=== PATIENT | female | born 1990 | race Caucasian/White ===

== ENCOUNTER 2023-09-16 18:46 | Emergency (ER) | payer OTHER, MEDICAID, SELFPAY ==
[2023-09-16 19:00] VITALS: BP 114/72; PULSE 98; RESP 16; TEMP 36.6; O2SAT 97; BMI 30.7
--- NOTE | 2023-09-16 20:08 | ED.RECABL ---
HPI - Recheck/Abnormal Lab/Rx General Chief Complaint: Recheck/Abnormal Lab/Rx Stated Complaint: Abnormal labs, sent by PCP Time Seen by Provider: 09/16/23 19:57 Source: patient Mode of arrival: Ambulatory History of Present Illness HPI narrative: 33-year-old woman with a history of depression planning to have a tummy tuck on September 30 in [facility]. She has a form that needs to be filled out for medical clearance including blood work. She apparently tried to have her own physician do this and that physician is out of town for a week and a half. She went to the walk-in clinic who referred her down to the hospital, she went to the lab who referred her to the emergency department. Because accessing resources has been a problem I did choose to complete her evaluation in the emergency department. She has had a recent sinus infection with antibiotics still has some congestion. Sinus CT shows no continued infection. No shortness a breath, chest pain, palpitations, nausea, vomiting, diarrhea, dysuria, flank pain, abdominal pain. Related Data Allergies Allergy/AdvReac Type Severity Reaction Status Date / Time fish derived Allergy Verified 09/16/23 19:13 gluten Allergy Verified 09/16/23 19:13 peanut Allergy Verified 09/16/23 19:13 shellfish derived Allergy Verified 09/16/23 19:13 wheat Allergy Verified 09/16/23 19:13 Review of Systems Review of Systems Narrative: Pertinent positive and negative findings as per HPI Patient History Medical History (Updated 09/16/23 @ 20:24 by Brandi Bueno MD) Depression Social History Smoking Status: Never smoker Smoking Status: Never smoker Substance Use Type: does not use Exam Initial Vital Signs Initial Vital Signs: Vital Signs Temperature 97.8 F 09/16/23 19:00 Pulse Rate 98 H 09/16/23 19:00 Respiratory Rate 16 09/16/23 19:00 Blood Pressure 114/72 09/16/23 19:00 Pulse Oximetry 97 09/16/23 19:00 Oxygen Delivery Method Room Air 09/16/23 19:00 General: Healthy appearing, in no acute distress. Able to give a complete and coherent history. Well-nourished well-developed HEENT: Moist mucous membranes, normal sclera with reactive pupils, Respiratory: Lungs are clear to auscultation, no wheezing no rales no rhonchi. Full and symmetrical air movement Cardiac: Regular rate and rhythm no murmurs no bruits Abdomen: Soft, nontender, good bowel tones, no flank pain Skin: Warm and dry, no rashes Neurologic: Grossly neurologically intact with no obvious asymmetries or abnormalities Extremities: No trauma, well perfused Psych: Cooperative, appropriate insight and affect Course Orders Ordered: ED Orders 09/16/23 20:19 EKG-12 Lead Stat 09/16/23 20:36 Complete Blood Count AUTO DIFF Stat Comprehensive Metabolic Panel Stat HCG Quantitative /Beta subunit Stat HIV 1 & 2 Ab/Ag 4th Gen Combo Stat PT [Prothrombin Time INR] Stat PTT Partial Thromboplastin Justin Stat 09/16/23 20:45 UA Complete [Urinalysis and Microscopic] Stat Vital Signs Vital signs: Vital Signs - 8 hr 09/16/23 19:00 Temperature 97.8 F Pulse Rate 98 H Respiratory Rate 16 Blood Pressure 114/72 Pulse Oximetry 97 Oxygen Delivery Method Room Air MDM - Recheck/Abnormal Lab/Rx Lab Data 09/16/23 20:36 09/16/23 20:36 Labs: Lab Results 09/16/23 09/16/23 Range/Units 20:36 20:45 WBC 6.8 (4.5-11.0) X10^3/uL RBC 4.64 (4.0-5.2) X10^6/uL Hgb 13.5 (12.0-16.0) g/dL Hct 40.0 (36-46) % MCV 86.2 (80-100) fL MCH 29.1 (26-34) PG MCHC 33.7 (30-36) % RDW 13.3 (11.6-14.8) % Plt Count 296 (150-400) X10^3/uL Neut % (Auto) 51.2 (50-75) % Lymph % (Auto) 33.1 (25-40) % [place] % (Auto) 9.2 (3-14) % Eos % (Auto) 4.5 H (2-4) % Baso % (Auto) 2.0 (0-2) % Neut # (Auto) 3500 (3726-3705) /uL Lymph # (Auto) 2300 (6554-4269) /uL [place] # (Auto) 600 (0-900) /uL Eos # (Auto) 300 (0-450) /uL Baso # (Auto) 100 (0-100) /uL PT 11.4 (9.4-12.5) SECONDS INR 1.0 (0.9-1.3) APTT 37 H (25.1-36.5) SECONDS Sodium 138 (137-145) mmol/L Potassium 3.7 (3.4-5.1) mmol/L Chloride 106 (98-107) mmol/L Carbon Dioxide 26 (22-32) mmol/L BUN 20 H (7-17) mg/dL Creatinine 0.74 (0.52-1.04) mg/dL Estimated GFR > 60 (>60) mL/min BUN/Creatinine Ratio 27.0 H (6-22) Glucose 80 (70-100) mg/dL Calcium 9.1 (8.4-10.2) mg/dL Total Bilirubin 0.3 (0.2-1.3) mg/dL AST 25 (14-36) IU/L ALT 20 (<35) IU/L Alkaline Phosphatase 53 (38-126) U/L Total Protein 7.5 (6.3-8.2) g/dL Albumin 4.4 (3.5-5.0) g/dL Globulin 3.1 (1.7-4.1) g/dL Albumin/Globulin Ratio 1.4 (1.0-2.8) HCG, Quant < 2.39 mIU/mL Urine Color Yellow Urine Appearance Clear Urine pH 8.0 (4.5-8.0) Ur Specific [place] 1.015 (1.000-1.035) Urine Protein Negative (Negative) Urine Glucose (UA) Negative (Negative) g/dL Urine Ketones Negative (NEGATIVE) Urine Occult Blood Negative (Negative) Urine Nitrate Negative (Negative) Urine Bilirubin Negative (NEGATIVE) Urine Urobilinogen 1.0 (0.2) E.U./dL Ur Leukocyte Esterase Negative (NEGATIVE) Urine RBC 0-1/hpf (0-5/HPF) Urine WBC 0-1/hpf (0-5/HPF) Ur Squamous Epith Cells 0-1 /hpf (0-5/HPF) Amorphous Sediment 1+ Urine Bacteria Occasional (0-1) (None) Ur Culture Indicated? Cult not indicated Vol Urine Centrifuged 10ml (spun) MDM Narrative Medical decision making narrative: 33-year-old woman presents for preoperative medical clearance for tummy tuck scheduled on September 30 in [place]. Exam is entirely benign History does not suggest findings that would cause acute complications or need additional workup, imaging or hospitalization Lab work including CBC, CMP, hCG, HIV, PT, PTT, INR, urinalysis as well as EKG as requested from the cosmetic surgical center have all been ordered. CBC is unremarkable Coagulation studies are unremarkable Chemistries show no acute abnormalities Quantitative hCG is undetectable, patient is not Urinalysis with microscopic evaluation is unremarkable. Culture is not indicated, patient does not have a UTI HIV testing is currently pending EKG shows sinus rhythm at a rate of 82. Normal intervals, normal axis. QTC of 420. No acute ischemic changes. Within the limits of emergency department evaluation, patient is felt to be medically stable for cosmetic surgical procedure Discharge Plan Departure Patient Disposition: Home Clinical Impression: Encounter for preoperative examination for general surgical procedure Activity Restrictions/Additional Instructions: I have given you a copy of your ER note from today which includes all the blood work as requested and note that says as far as you have been evaluated emergency department, you are felt to be clear for cosmetic surgery. The HIV test typically is not done overnight. It should be available by tomorrow. You will need to either axis [facility] patient portal for the result or call medical records and ask them for a copy of the result Good luck with your surgery Referrals: Carlos Grimes MD [Primary Care Provider] - Stand Alone Forms: Patient Portal/API
[2023-09-16 20:46] LABS: Add Manual Diff / Slide Review NO; Basophils Absolute Auto 100 /uL (0-100); Eosinophils Absolute Auto 300 /uL (0-450); Eosinophils Percent Auto 4.5 % (2-4); Hemoglobin 13.5 g/dL (12.0-16.0); Lymphocytes Absolute Auto 2300 /uL (1100-4500); Lymphocytes Percent Auto 33.1 % (25-40); Mean Corpuscular HGB Conc 33.7 % (30-36); Mean Corpuscular Hemoglobin 29.1 PG (26-34); Mean Corpuscular Volume 86.2 fL (80-100); Monocytes Absolute Auto 600 /uL (0-900); Monocytes Percent Auto 9.2 % (3-14); Neutrophils Absolute Auto 3500 /uL (1500-7000); Neutrophils Percent Auto 51.2 % (50-75); Platelet Count 296 X10^3/uL (150-400); Red Blood Cell Count 4.64 X10^6/uL (4.0-5.2); Red Cell Distribution Width 13.3 % (11.6-14.8); White Blood Cell Count 6.8 X10^3/uL (4.5-11.0)
[2023-09-16 20:56] LABS: Prothrombin Time 11.4 SECONDS (9.4-12.5)
[2023-09-16 20:58] LABS: PTT Partial Thromboplastin Tim 37 SECONDS (25.1-36.5)
[2023-09-16 21:01] LABS: Alanine Aminotransferase 20 IU/L (<35); Albumin 4.4 g/dL (3.5-5.0); Albumin Globulin Ratio 1.4 (1.0-2.8); Alkaline Phosphatase 53 U/L (38-126); Aspartate Aminotransferase 25 IU/L (14-36); Bilirubin Total 0.3 mg/dL (0.2-1.3); Blood Urea Nitrogen 20 mg/dL (7-17); Calcium 9.1 mg/dL (8.4-10.2); Carbon Dioxide 26 mmol/L (22-32); Chloride 106 mmol/L (98-107); Estimated Glomerular Filt Rate > 60 mL/min (>60); Globulin 3.1 g/dL (1.7-4.1); Glucose 80 mg/dL (70-100); HEMOLYSIS < 15 (0-50); Potassium 3.7 mmol/L (3.4-5.1); Sodium 138 mmol/L (137-145); Total Protein 7.5 g/dL (6.3-8.2)
[2023-09-16 21:02] LABS: Appearance Urine UA CLEAR; Bilirubin Urine UA NEGATIVE (NEGATIVE); Color Urine UA YELLOW; Glucose Urine UA NEGATIVE (Negative); Ketones Urine UA NEGATIVE (NEGATIVE); Leukocyte Esterase Urine UA NEGATIVE (NEGATIVE); Nitrite Urine UA NEGATIVE (Negative); Occult Blood Urine UA NEGATIVE (Negative); Protein Urine UA NEGATIVE (Negative); Specific Gravity Urine UA 1.015 (1.000-1.035)
[2023-09-16 21:17] LABS: HCG Quantitative /Beta subunit < 2.39 mIU/mL
[2023-09-16 21:22] LABS: Amorphous Sediment Urine 1+; Bacteria Urine Occasional (0-1); Culture Indicated Urine Cult Not Indicated; RBC Urine 0-1/HPF (0-5/HPF); Squamous Epithelial Cell Urine 0-1 /HPF (0-5/HPF); Urine Volume 10mL (spun); WBC Urine 0-1/HPF (0-5/HPF)
[2023-09-16 21:42] LABS: HIV 1 & 2 Ab/Ag 4th Gen Combo NEGATIVE (NEGATIVE)
[2023-09-16 21:49] VITALS: BP 129/83; PULSE 80; RESP 16; O2SAT 99
== END 2023-09-16 21:50 | disposition home or self-care (01) ==
PROVIDERS: Emergency Provider Emergency Medicine; PCP Internal Medicine
DX: Z01.818 Encounter for other preprocedural examination (principal)
CPT/HCPCS: 80053; 81001; 84702; 85025; 85610; 85730; 87389; 93005; 93010; 99281; 99282

== ENCOUNTER 2023-12-19 22:45 | Emergency (ER) | payer OTHER, MEDICAID, SELFPAY ==
[2023-12-19 22:55] VITALS: BP 135/89; PULSE 88; RESP 16; TEMP 36.7; O2SAT 98; BMI 29.9
--- NOTE | 2023-12-19 23:00 | DI.RAD.S_ITS ---
PROCEDURE: XR CHEST 1V INDICATIONS: chest pain TECHNIQUE: One view of the chest was acquired. COMPARISON: None. FINDINGS: Surgical changes and devices: None. Lungs and pleura: Lungs are clear. No pleural effusions or pneumothorax. Mediastinum: Mediastinal contours appear normal. Heart size is normal. Bones and chest wall: No suspicious bony lesions. Overlying soft tissues appear unremarkable. IMPRESSION: No acute cardiopulmonary abnormality is seen. Dictated by: Romeo Lamar M.D. on 12/20/2023 at 0:26 Approved by: Romeo Lamar M.D. on 12/20/2023 at 0:26
[2023-12-19 23:26] LABS: Add Manual Diff / Slide Review NO; Basophils Absolute Auto 100 /uL (0-100); Basophils Percent Auto 1.1 % (0-2); Eosinophils Absolute Auto 400 /uL (0-450); Eosinophils Percent Auto 5.9 % (2-4); Hematocrit 37.4 % (36-46); Hemoglobin 12.3 g/dL (12.0-16.0); Lymphocytes Absolute Auto 3000 /uL (1100-4500); Lymphocytes Percent Auto 42.9 % (25-40); Mean Corpuscular Hemoglobin 26.6 PG (26-34); Mean Corpuscular Volume 80.4 fL (80-100); Monocytes Absolute Auto 500 /uL (0-900); Monocytes Percent Auto 6.7 % (3-14); Neutrophils Absolute Auto 3000 /uL (1500-7000); Neutrophils Percent Auto 43.4 % (50-75); Platelet Count 322 X10^3/uL (150-400); Red Blood Cell Count 4.65 X10^6/uL (4.0-5.2); Red Cell Distribution Width 15.4 % (11.6-14.8)
--- NOTE | 2023-12-19 23:30 | EKG_ITS ---
[facility] [address], [place] [address] Test Date: 2023-12-19 Pat Name: Helga Howard Department: [facility] Room: Gender: Female Collateral Analyst: SARITHA : 1990 Requested By: Order Number: [id number] Reading MD: Wicho Escalante Measurements Intervals [place] Rate: 78 P: 42 VT: 186 QRS: 58 QRSD: 84 T: 49 QT: 374 QTc: 426 Interpretive Statements Normal sinus rhythm Electronically Signed On 12-20-2023 17:59:28 PDT by Wicho Escalante
[2023-12-19 23:44] LABS: INR 0.9 (0.9-1.3); Prothrombin Time 10.5 SECONDS (9.4-12.5)
[2023-12-19 23:46] LABS: PTT Partial Thromboplastin Tim 36 SECONDS (25.1-36.5)
[2023-12-19 23:59] LABS: Alanine Aminotransferase 31 IU/L (<35); Albumin 4.1 g/dL (3.5-5.0); Albumin Globulin Ratio 1.3 (1.0-2.8); Alkaline Phosphatase 47 U/L (38-126); Aspartate Aminotransferase 44 IU/L (14-36); BUN Creatinine Ratio 22.2 (6-22); Bilirubin Total 0.3 mg/dL (0.2-1.3); Blood Urea Nitrogen 16 mg/dL (7-17); Calcium 8.8 mg/dL (8.4-10.2); Carbon Dioxide 22 mmol/L (22-32); Chloride 107 mmol/L (98-107); Creatine Kinase 118 U/L (30-135); Estimated Glomerular Filt Rate > 60 mL/min (>60); Globulin 3.1 g/dL (1.7-4.1); Glucose 104 mg/dL (70-100); HEMOLYSIS < 15 (0-50); Lipase 126 U/L (23-300); Magnesium 1.8 mg/dL (1.6-2.3); Potassium 3.7 mmol/L (3.4-5.1); Sodium 137 mmol/L (137-145); Total Protein 7.2 g/dL (6.3-8.2)
[2023-12-20 00:10] LABS: NT-proBNP (BNP-Adult 18+) < 20 pg/mL (<125); Troponin I < 0.012 ng/mL (0.01-0.034)
[2023-12-20 01:00] VITALS: BP 124/78; PULSE 85; RESP 18; O2SAT 99
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
[2023-12-20] MEDS: DEXAMETHASONE 10 MG/ML VIAL PO (01:27)
== END 2023-12-20 01:47 | disposition home or self-care (01) ==
PROVIDERS: Emergency Provider Emergency Medicine; PCP Internal Medicine
DX: M62.838 Other muscle spasm (principal); T75.4XXS Electrocution, sequela; R07.9 Chest pain, unspecified; R11.0 Nausea
CPT/HCPCS: 36415; 71045; 80053; 82550; 83690; 83735; 83880; 84484; 85025; 85610; 85730; 93005; 99284; J1100

== ENCOUNTER 2024-02-07 22:03 | Emergency (ER) | payer OTHER, MEDICAID, SELFPAY ==
[2024-02-07 22:04] VITALS: BP 123/76; PULSE 99; RESP 18; TEMP 36.8; O2SAT 98
--- NOTE | 2024-02-07 22:20 | ED.NAVMDI ---
HPI - Nausea/Vomiting/Diarrhea General Chief complaint: Nausea/Vomiting/Diarrhea Stated complaint: Vomiting, Malaise, Spotting Time Seen by Provider: 02/07/24 22:10 Source: patient Mode of arrival: Ambulatory History of Present Illness HPI Narrative: 33-year-old female complains of nausea, vomiting, diarrhea multiple episodes since this morning. No black or red color. No fevers or chills. No recent exposure to antibiotics. She does also have a rash that is itchy on her face and upper chest, has swelling sensation to posterior back. No hives. No new medications, mascara, creams, clothing, detergents. 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 Close contact persons home and at work did not seem to have nausea vomiting diarrhea symptoms. No recent travel or camping. No history of chronic abdominal problems such as Crohn's disease, inflammatory bowel disease. She reports history of gluten allergy, is quite careful about her gluten intake, no recent gluten containing foods known. Related Data Previous Rx's Medication Instructions Recorded cetirizine 10 mg tablet 10 mg PO DAILY #14 tabs 02/08/24 prednisone 20 mg tablet 40 mg (2 x 20 mg) PO DAILY 5 days 02/08/24 #10 tabs prednisone 20 mg tablet 40 mg (2 x 20 mg) PO DAILY 5 days 02/08/24 #10 tabs Allergies Allergy/AdvReac Type Severity Reaction Status Date / Time fish derived Allergy Verified 09/16/23 19:13 gluten Allergy Verified 09/16/23 19:13 peanut Allergy Verified 09/16/23 19:13 shellfish derived Allergy Verified 09/16/23 19:13 wheat Allergy Verified 09/16/23 19:13 Review of Systems Review of Systems Narrative: See HPI Patient History Medical History Depression Social History Smoking Status: Never smoker Smoking Status: Never smoker alcohol intake frequency: 0-2 drinks per day Substance Use Type: does not use Exam Narrative Exam Narrative: GENERAL: Well-developed patient, in mild distress. HEAD: Atraumatic. Normocephalic. EYES: Pupils equal round and reactive. Extraocular motions intact. No scleral icterus. No injection or drainage. ENT: Nose without bleeding, purulent drainage. Throat without erythema, tonsillar hypertrophy or exudate. Airway patent. NECK: Trachea midline. Non tender CARDIOVASCULAR: Regular rate and rhythm without murmurs, gallops, or rubs. RESPIRATORY: Clear to auscultation. Breath sounds equal bilaterally. No wheezes, rales, or rhonchi. GASTROINTESTINAL: Abdomen soft, non-tender, nondistended. EXTREMITIES: No edema or joint tenderness. BACK: Nontender without deformity or crepitance. No flank tenderness. NEURO: AOx3. Motor functions grossly nonfocal SKIN: No rash or erythema of visible areas. Maculopapular rash face and anterior trunk, not particularly urticarial in nature. No angioedema to the face or lips or tongue or eyelids. No vesicles. No varied appearance, no erythematous spaces, not consistent with varicella by appearance or distribution. No similar rash posterior trunk or anterior abdomen or extremities. Initial Vital Signs Initial Vital Signs: Vital Signs Temperature 98.2 F 02/07/24 22:04 Pulse Rate 99 H 02/07/24 22:04 Respiratory Rate 18 02/07/24 22:04 Blood Pressure 123/76 02/07/24 22:04 Pulse Oximetry 98 02/07/24 22:04 Oxygen Delivery Method Room Air 02/07/24 22:04 Course Orders Ordered: ED Orders 02/07/24 21:55 Complete Blood Count AUTO DIFF Stat Comprehensive Metabolic Panel Stat GI Panel (Film Array) Stat Lipase Stat Urine Microscopic Stat Ondansetron HCl (Ondansetron 4 Mg/2 Ml Inj) 4 mg IV NOW PRN PRN Reason: Nausea And Vomiting Ondansetron HCl (Ondansetron 4 Mg Odt) 4 mg SL NOW PRN PRN Reason: Nausea And Vomiting Discontinued Medications Sodium Chloride (Normal Saline 0.9%) 1,000 mls @ 500 mls/hr IV BOLUS ONE Stop: 02/08/24 00:57 Last Admin: 02/07/24 23:21 Dose: 500 mls/hr Documented By: RAJI Methylprednisolone (Methylprednisolone 125 Mg/2 Ml Vial) 125 mg IV NOW ONE Stop: 02/07/24 22:44 Last Admin: 02/07/24 23:15 Dose: 125 mg Documented By: DKB Ondansetron HCl (Ondansetron 4 Mg/2 Ml Inj) 4 mg IV NOW ONE Stop: 02/07/24 22:44 Last Admin: 02/07/24 23:16 Dose: 4 mg Documented By: RAJI Ondansetron HCl (Ondansetron 4 Mg Odt Prepack) 1 bottle MISC DIRECTED ONE Stop: 02/08/24 00:33 Last Admin: 02/08/24 01:18 Dose: 1 bottle Documented By: RAJI Vital Signs Vital signs: Vital Signs - 8 hr 02/07/24 22:04 Temperature 98.2 F Pulse Rate 99 H Respiratory Rate 18 Blood Pressure 123/76 Pulse Oximetry 98 Oxygen Delivery Method Room Air MDM - Nausea/Vomiting/Diarrhea Lab Data Attestation: I reviewed the patient's lab results. Lab results narrative: White blood cell count 86647, hemoglobin 14, platelets adequate. Basic metabolic panel components unremarkable. Liver functions normal, lipase normal. Urine dip negative. Urine negative. GI pathogens panel negative. 02/07/24 21:55 02/07/24 21:55 Labs: Lab Results 02/07/24 Range/Units 21:55 WBC 11.7 H (4.5-11.0) X10^3/uL RBC 5.37 H (4.0-5.2) X10^6/uL Hgb 14.0 (12.0-16.0) g/dL Hct 43.3 (36-46) % MCV 80.6 (80-100) fL MCH 26.1 (26-34) PG MCHC 32.3 (30-36) % RDW 16.9 H (11.6-14.8) % Plt Count 322 (150-400) X10^3/uL Neut % (Auto) 72.1 (50-75) % Lymph % (Auto) 14.8 L (25-40) % [place] % (Auto) 7.2 (3-14) % Eos % (Auto) 5.3 H (2-4) % Baso % (Auto) 0.6 (0-2) % Neut # (Auto) 9 L (5160-1795) /uL Lymph # (Auto) 2 L (4890-6359) /uL [place] # (Auto) 1 (0-900) /uL Eos # (Auto) 1 (0-450) /uL Baso # (Auto) 0 (0-100) /uL Sodium 136 L (137-145) mmol/L Potassium 4.0 (3.4-5.1) mmol/L Chloride 104 (98-107) mmol/L Carbon Dioxide 21 L (22-32) mmol/L BUN 15 (7-17) mg/dL Creatinine 0.67 (0.52-1.04) mg/dL Estimated GFR > 60 (>60) mL/min BUN/Creatinine Ratio 22.4 H (6-22) Glucose 119 H (70-100) mg/dL Calcium 9.2 (8.4-10.2) mg/dL Total Bilirubin 0.5 (0.2-1.3) mg/dL AST 28 (14-36) IU/L ALT 20 (<35) IU/L Alkaline Phosphatase 46 (38-126) U/L Total Protein 7.9 (6.3-8.2) g/dL Albumin 4.5 (3.5-5.0) g/dL Globulin 3.4 (1.7-4.1) g/dL Albumin/Globulin Ratio 1.3 (1.0-2.8) Lipase 115 (23-300) U/L Urine RBC None seen (0-5/HPF) Urine WBC None seen (0-5/HPF) Ur Squamous Epith Cells 1-5 /hpf (0-5/HPF) Urine Bacteria None seen (None) Ur Culture Indicated? Cult not indicated Vol Urine Centrifuged 10ml (spun) Stl C. cayetanensis PCR Not detected (Not Detect) Stool Rotavirus (PCR) Not detected (Not Detect) Stool Adenovirus (PCR) Not detected (Not Detect) Stool Astrovirus (PCR) Not detected (Not Detect) Stool Cryptosporidium PCR Not detected (Not Detect) Stl E.coli Shiga Tox PCR Not detected (Not Detect) St Sh/Enteroin Ecoli PCR Not detected (Not Detect) Stl Enterotoxigenic E PCR Not detected (Not Detect) Stool EPEC (PCR) Not detected (Not Detect) Stl E. histolytica PCR Not detected (Not Detect) Stool Giardia Lamblia PCR Not detected (Not Detect) Stool Sapovirus (PCR) Not detected (Not Detect) Stl P. shigelloides PCR Not detected (Not Detect) St Y.enterocolitica PCR Not detected (Not Detect) Stool Vibrio (PCR) Not detected (Not Detect) Stl Vibrio cholerae PCR Not detected (Not Detect) Stl Enteroaggr Ecoli PCR Not detected (Not Detect) Stl Norovirus GI/GII PCR Not detected (Not Detect) Campylobacter (PCR) Not detected (Not Detect) C. difficile Tox (PCR) Not detected (Not Detect) Salmonella (PCR) Not detected (Not Detect) Point of Care Testing Test Results Negative Urine Dip Bedside Urine Glucose Negative Bedside Urine Ketone +/- 5 Urine Specific [place] 1.30 Bedside Urine Occult Blood +/- Bedside Urine pH 6.0 Bedside Urine Protein - Negative Bedside Urine Urobilinogen - Negative Bedside Urine Nitrite - Negative Bedside Urine Leukocytes +/- 15 Esterase MDM Narrative Medical decision making narrative: Nausea vomiting diarrhea, crampy abdominal discomfort, afebrile, sirs screen negative. Some maculopapular rash facial and upper neck also noted. Could consider anaphylactoid reaction to some exposure with GI component. Itchy rash. We will give IV Solu-Medrol. Offered Benadryl, she does not like the sedation effect, consider oral Zyrtec [id number]. Normotensive, without wheeze or dyspnea. Labs pending. IV fluids given. Negative GI stool panel. Serum studies unremarkable. Urine test negative noted. Urinalysis negative. Symptoms improved, itchy rash with GI symptoms, could consider anaphylactoid reaction, recent exposure to construction materials at work. Prednisone additional few days. She does not want Benadryl as she finds this sedating, prescription written for cetirizine less sedating oral antihistamine. Ondansetron ODT home pack. Encouraged to drink oral fluids. Improved, discharged home with family. Return precautions discussed Discharge Plan Departure Patient Disposition: Home Clinical Impression: Nausea vomiting and diarrhea, Pruritic rash Activity Restrictions/Additional Instructions: Nausea vomiting diarrhea. No fever, some association with itchy rash predominantly to the face and upper chest, also some symptoms lower back. 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 Itchy rash with gastrointestinal symptoms, could represent anaphylactoid reaction to some exposure. IV steroids Solu-Medrol given in the emergency department, you declined Benadryl due to sedation effects, consider use of [id number] Zyrtec less sedating antihistamine daily for the next few days, or longer if continued exposure to construction/work environment. Steroid prednisone orally prescribed for the next few days. Ondansetron home pack oral dissolvable formulation, to use for nausea control if needed. Laboratory studies showed no virus or bacteria in stool specimen. Unremarkable serum studies. Take medications as directed. Recheck symptoms with your regular doctor persisting Saturday/Saturday early this upcoming week. Return to this/nearest emergency department for any change worsening symptoms or any concerns prior Prescriptions: New prednisone 20 mg tablet 40 mg PO DAILY 5 Days Qty: 10 0RF cetirizine 10 mg tablet 10 mg PO DAILY Qty: 14 0RF prednisone 20 mg tablet 40 mg PO DAILY 5 Days Qty: 10 0RF Referrals: Carlos Grimes MD [Primary Care Provider] - Stand Alone Forms: Patient Portal/API/Survey
[2024-02-07 22:41] LABS: Hematocrit 43.3 % (36-46); Mean Corpuscular Hemoglobin 26.1 PG (26-34); Mean Corpuscular Volume 80.6 fL (80-100); Red Blood Cell Count 5.37 X10^6/uL (4.0-5.2); White Blood Cell Count 11.7 X10^3/uL (4.5-11.0)
[2024-02-07 22:42] LABS: Add Manual Diff / Slide Review NO; Basophils Percent Auto 0.6 % (0-2); Eosinophils Percent Auto 5.3 % (2-4); Lymphocytes Percent Auto 14.8 % (25-40); Mean Corpuscular HGB Conc 32.3 % (30-36); Monocytes Percent Auto 7.2 % (3-14); Neutrophils Percent Auto 72.1 % (50-75); Platelet Count 322 X10^3/uL (150-400); Red Cell Distribution Width 16.9 % (11.6-14.8)
[2024-02-07 22:43] LABS: Basophils Absolute Auto 0 /uL (0-100); Eosinophils Absolute Auto 1 /uL (0-450); Lymphocytes Absolute Auto 2 /uL (1100-4500); Monocytes Absolute Auto 1 /uL (0-900); Neutrophils Absolute Auto 9 /uL (1500-7000)
[2024-02-07 22:50] LABS: Alanine Aminotransferase 20 IU/L (<35); Albumin 4.5 g/dL (3.5-5.0); Albumin Globulin Ratio 1.3 (1.0-2.8); Alkaline Phosphatase 46 U/L (38-126); Aspartate Aminotransferase 28 IU/L (14-36); BUN Creatinine Ratio 22.4 (6-22); Bacteria Urine None Seen; Bilirubin Total 0.5 mg/dL (0.2-1.3); Blood Urea Nitrogen 15 mg/dL (7-17); Calcium 9.2 mg/dL (8.4-10.2); Carbon Dioxide 21 mmol/L (22-32); Chloride 104 mmol/L (98-107); Estimated Glomerular Filt Rate > 60 mL/min (>60); Globulin 3.4 g/dL (1.7-4.1); Glucose 119 mg/dL (70-100); HEMOLYSIS < 15 (0-50); Lipase 115 U/L (23-300); RBC Urine None Seen (0-5/HPF); Sodium 136 mmol/L (137-145); Squamous Epithelial Cell Urine 1-5 /HPF (0-5/HPF); Total Protein 7.9 g/dL (6.3-8.2); Urine Volume 10mL (spun); WBC Urine None Seen (0-5/HPF)
[2024-02-07 22:51] LABS: Culture Indicated Urine Cult Not Indicated
[2024-02-07] MEDS: methylPREDNISolone 125 MG/2 ML VIAL IV (23:15)
[2024-02-07] MEDS: ONDANSETRON 4 MG/2 ML INJ IV (23:16)
[2024-02-07 23:20] VITALS: PULSE 95; O2SAT 98
[2024-02-07 23:21] VITALS: BP 120/65; PULSE 90; O2SAT 98
[2024-02-07] MEDS: SODIUM CHLORIDE 0.9% 1,000 ML 500 ML IV (23:21)
[2024-02-07 23:30] VITALS: PULSE 90; O2SAT 99
[2024-02-08] VITALS: PULSE 92; O2SAT 98
[2024-02-08 00:16] LABS: Adenovirus F 40/41 Not Detected (Not Detect); Astrovirus Not Detected (Not Detect); Campylobacter Not Detected (Not Detect); Clostridium difficile toxin AB Not Detected (Not Detect); Cryptosporidium Not Detected (Not Detect); Cyclospora cayetanensis Not Detected (Not Detect); Entamoeba histolytica Not Detected (Not Detect); Enteroaggregative E.coli Not Detected (Not Detect); Enteropathogenic E.coli Not Detected (Not Detect); Enterotoxigenic E.coli It/st Not Detected (Not Detect); Giardia lamblia Not Detected (Not Detect); Norovirus GI/GII Not Detected (Not Detect); Plesiomonsa shigelloides Not Detected (Not Detect); Rotavirus A Not Detected (Not Detect); Salmonella Not Detected (Not Detect); Sapovirus Not Detected (Not Detect); Shiga-like toxin-prod E.coli Not Detected (Not Detect); Shigella/Enteroinvasive E.coli Not Detected (Not Detect); Vibrio Not Detected (Not Detect); Vibrio cholerae Not Detected (Not Detect); Yersinia enterocolitica Not Detected (Not Detect)
[2024-02-08 00:30] VITALS: PULSE 90; O2SAT 95
--- NOTE | 2024-02-08 01:03 | PC.NURSE ---
Pt informed that VS would be taken automaticly every 30 min. She removed BP cuff multiple times.
[2024-02-08] MEDS: ONDANSETRON 4 MG ODT PREPACK 1 BOTTLE MISC (01:18)
[2024-02-08 01:23] VITALS: O2SAT 96
[2024-02-08 01:25] VITALS: BP 113/76; PULSE 90; O2SAT 96
== END 2024-02-08 01:31 | disposition home or self-care (01) ==
PROVIDERS: Emergency Provider Emergency Medicine; PCP Internal Medicine
DX: R11.2 Nausea with vomiting, unspecified (principal); R19.7 Diarrhea, unspecified; R21 Rash and other nonspecific skin eruption
CPT/HCPCS: 36415; 80053; 81003; 81015; 81025; 83690; 85025; 87507; 96361; 96374; 96375; 99284; J2405; J2919

== ENCOUNTER 2024-04-02 19:25 | Emergency (ER) | payer OTHER, SELFPAY ==
[2024-04-02 19:31] VITALS: BP 145/75; PULSE 103; RESP 18; TEMP 36.8; O2SAT 99; BMI 29.9
[2024-04-02] MEDS: ONDANSETRON 4 MG ODT SL (19:41)
[2024-04-02 19:55] LABS: Bacteria Urine Moderate (10-30); RBC Urine None Seen (0-5/HPF); Squamous Epithelial Cell Urine 1-5 /HPF (0-5/HPF); Urine Volume 10mL (spun); WBC Urine None Seen (0-5/HPF)
[2024-04-02 19:57] LABS: Culture Indicated Urine Cult Not Indicated
[2024-04-02] MEDS: ONDANSETRON 4 MG/2 ML INJ IV (21:25)
[2024-04-02 21:28] LABS: Add Manual Diff / Slide Review NO; Basophils Absolute Auto 100 /uL (0-100); Basophils Percent Auto 1.2 % (0-2); Eosinophils Absolute Auto 400 /uL (0-450); Eosinophils Percent Auto 4.9 % (2-4); Hematocrit 37.5 % (36-46); Hemoglobin 12.5 g/dL (12.0-16.0); Lymphocytes Absolute Auto 2200 /uL (1100-4500); Lymphocytes Percent Auto 29.7 % (25-40); Mean Corpuscular HGB Conc 33.4 % (30-36); Mean Corpuscular Hemoglobin 28.4 PG (26-34); Mean Corpuscular Volume 85.2 fL (80-100); Monocytes Absolute Auto 700 /uL (0-900); Monocytes Percent Auto 8.8 % (3-14); Neutrophils Absolute Auto 4100 /uL (1500-7000); Neutrophils Percent Auto 55.4 % (50-75); Platelet Count 293 X10^3/uL (150-400); Red Cell Distribution Width 14.8 % (11.6-14.8); White Blood Cell Count 7.4 X10^3/uL (4.5-11.0)
[2024-04-02 21:41] LABS: Alanine Aminotransferase 59 IU/L (<35); Albumin 4.2 g/dL (3.5-5.0); Albumin Globulin Ratio 1.4 (1.0-2.8); Alkaline Phosphatase 40 U/L (38-126); Aspartate Aminotransferase 43 IU/L (14-36); Bilirubin Total 0.2 mg/dL (0.2-1.3); Blood Urea Nitrogen 13 mg/dL (7-17); Calcium 8.8 mg/dL (8.4-10.2); Carbon Dioxide 20 mmol/L (22-32); Chloride 108 mmol/L (98-107); Estimated Glomerular Filt Rate > 60 mL/min (>60); Globulin 2.9 g/dL (1.7-4.1); Glucose 126 mg/dL (70-100); HEMOLYSIS < 15 (0-50); Lipase 133 U/L (23-300); Magnesium 1.7 mg/dL (1.6-2.3); Sodium 135 mmol/L (137-145); Total Protein 7.1 g/dL (6.3-8.2)
[2024-04-02 21:48] LABS: Ketones (Beta-Hydroxybutyrate) 0.03 mmol/L (<0.27)
--- NOTE | 2024-04-02 22:07 | ED_ITS ---
HPI - General Adult General Chief complaint: Diabetic Problem Stated complaint: High glucose Time Seen by Provider: 04/02/24 20:25 Source: patient Mode of arrival: Ambulatory History of Present Illness HPI narrative: Patient was a 33-year-old female. Is a diabetic. Is here for evaluation of feeling like her blood sugars have been elevated. Also having a rash on her chest. No recent medication changes. Has a follow up with her primary doctor scheduled for tomorrow. Patient was also having nausea. Was recently started on diclofenac for neck discomfort. This is a pill and not the cream. Her presenting symptoms today started prior to starting the diclofenac. Her symptoms have been present for approximately 1 week. Related Data Previous Rx's Medication Instructions Recorded cetirizine 10 mg tablet 10 mg PO DAILY #14 tabs 02/08/24 hydrocortisone valerate 0.2 % 1 applic topical QD-TID PRN rash 04/02/24 topical cream #15 grams Allergies Allergy/AdvReac Type Severity Reaction Status Date / Time fish derived Allergy Verified 09/16/23 19:13 gluten Allergy Verified 09/16/23 19:13 peanut Allergy Verified 09/16/23 19:13 shellfish derived Allergy Verified 09/16/23 19:13 wheat Allergy Verified 09/16/23 19:13 Review of Systems Review of Systems ROS Unobtainable: All systems reviewed & are unremarkable except as noted in HPI and below Patient History Medical History Depression Social History Smoking Status: Never smoker Smoking Status: Never smoker alcohol intake frequency: 0-2 drinks per day Exam Initial Vital Signs Initial Vital Signs: Vital Signs Temperature 98.2 F 04/02/24 19:31 Pulse Rate 103 H 04/02/24 19:31 Respiratory Rate 18 04/02/24 19:31 Blood Pressure 145/75 H 04/02/24 19:31 Pulse Oximetry 99 04/02/24 19:31 Oxygen Delivery Method Room Air 04/02/24 19:31 Const General: cooperative, comfortable and No ill appearing HENMT Head: normal to inspection and normocephalic Resp Effort & Inspection: normal respiratory effort Auscultation: clear to auscultation bilaterally Cardio Rate: regular rate Rhythm: regular rhythm GI Inspection: normal to inspection Skin Other: Patient has a beefy red rash on her upper chest. No vesicles. No pustules. Does extend somewhat up onto her neck. It was not urticaria in appearing. Not cellulitic appearing. Neuro General: patient alert, patient awake, patient oriented x3 and moves all extremities Extrem General: capillary refill normal Course Orders Ordered: ED Orders 04/02/24 19:34 Urine Microscopic Stat 04/02/24 21:15 Complete Blood Count AUTO DIFF Stat Comprehensive Metabolic Panel Stat Ketones (Beta-Hydroxybutyrate) Stat Lipase Stat Magnesium Stat Discontinued Medications Ondansetron HCl (Ondansetron 4 Mg/2 Ml Inj) 4 mg IV NOW PRN PRN Reason: Nausea And Vomiting Last Admin: 04/02/24 21:25 Dose: 4 mg Documented By: PAT Ondansetron HCl (Ondansetron 4 Mg Odt) 4 mg SL NOW PRN PRN Reason: Nausea And Vomiting Last Admin: 04/02/24 19:41 Dose: 4 mg Documented By: LEONCIO Vital Signs Vital signs: Vital Signs - 8 hr 04/02/24 22:20 Pulse Rate 85 Respiratory Rate 16 Blood Pressure 135/80 Pulse Oximetry 99 Oxygen Delivery Method Room Air Medical Decision Making Lab Data Lab results reviewed: Yes I reviewed the patient's lab results. 04/02/24 21:15 04/02/24 21:15 Labs: Lab Results 04/02/24 04/02/24 Range/Units 19:34 21:15 WBC 7.4 (4.5-11.0) X10^3/uL RBC 4.40 (4.0-5.2) X10^6/uL Hgb 12.5 (12.0-16.0) g/dL Hct 37.5 (36-46) % MCV 85.2 (80-100) fL MCH 28.4 (26-34) PG MCHC 33.4 (30-36) % RDW 14.8 (11.6-14.8) % Plt Count 293 (150-400) X10^3/uL Neut % (Auto) 55.4 (50-75) % Lymph % (Auto) 29.7 (25-40) % [place] % (Auto) 8.8 (3-14) % Eos % (Auto) 4.9 H (2-4) % Baso % (Auto) 1.2 (0-2) % Neut # (Auto) 4100 (3931-7221) /uL Lymph # (Auto) 2200 (7249-2234) /uL [place] # (Auto) 700 (0-900) /uL Eos # (Auto) 400 (0-450) /uL Baso # (Auto) 100 (0-100) /uL Sodium 135 L (137-145) mmol/L Potassium 4.0 (3.4-5.1) mmol/L Chloride 108 H (98-107) mmol/L Carbon Dioxide 20 L (22-32) mmol/L BUN 13 (7-17) mg/dL Creatinine 0.62 (0.52-1.04) mg/dL Estimated GFR > 60 (>60) mL/min BUN/Creatinine Ratio 21.0 (6-22) Glucose 126 H (70-100) mg/dL Calcium 8.8 (8.4-10.2) mg/dL Magnesium 1.7 (1.6-2.3) mg/dL Total Bilirubin 0.2 (0.2-1.3) mg/dL AST 43 H (14-36) IU/L ALT 59 H (<35) IU/L Alkaline Phosphatase 40 (38-126) U/L Total Protein 7.1 (6.3-8.2) g/dL Albumin 4.2 (3.5-5.0) g/dL Globulin 2.9 (1.7-4.1) g/dL Albumin/Globulin Ratio 1.4 (1.0-2.8) Lipase 133 (23-300) U/L Urine RBC None seen (0-5/HPF) Urine WBC None seen (0-5/HPF) Ur Squamous Epith Cells 1-5 /hpf (0-5/HPF) Urine Bacteria Moderate (10-30) H (None) Ur Culture Indicated? Cult not indicated Vol Urine Centrifuged 10ml (spun) Ketones 0.03 (<0.27) mmol/L Point of Care Testing Test Results Negative Urine Dip Bedside Urine Glucose Negative Bedside Urine Bilirubin - Negative Bedside Urine Ketone - Negative Urine Specific [place] 1.015 Bedside Urine Occult Blood + Bedside Urine pH 6 Bedside Urine Protein - Negative Bedside Urine Urobilinogen - Negative Bedside Urine Nitrite - Negative Bedside Urine Leukocytes - Negative Esterase Point of care testing: Point of Care Testing Test Results Negative Urine Dip Bedside Urine Glucose Negative Bedside Urine Bilirubin - Negative Bedside Urine Ketone - Negative Urine Specific [place] 1.015 Bedside Urine Occult Blood + Bedside Urine pH 6 Bedside Urine Protein - Negative Bedside Urine Urobilinogen - Negative Bedside Urine Nitrite - Negative Bedside Urine Leukocytes - Negative Esterase MDM Narrative Medical decision making narrative: Her blood sugars today are unremarkable. She was not in DKA. No fevers. Has a rash on her upper chest of an uncertain etiology but it does not appear to be an anaphylactic reaction or cellulitis. Recommended topical medications for now. A topical steroid has been helpful in the past when she was had symptoms like this. Advised that she keep her scheduled appointment with her primary doctor. She was given return precautions. She expressed understanding and agreement. Discharge Plan Departure Patient Disposition: Home Clinical Impression: Rash Instructions: DI for Rash Activity Restrictions/Additional Instructions: I recommend that you keep your follow-up appointment with your primary doctor that is scheduled for tomorrow. Take all of your medications as directed. Return to the emergency department for new or worsening symptoms. Prescriptions: New hydrocortisone valerate 0.2 % cream 1 applic topical QD-TID PRN (Reason: rash) Qty: 15 1RF No Action cetirizine 10 mg tablet 10 mg PO DAILY Qty: 14 0RF Referrals: Carlos Grimes MD [Primary Care Provider] - Stand Alone Forms: Patient Portal/API/Survey
[2024-04-02 22:20] VITALS: BP 135/80; PULSE 85; RESP 16; O2SAT 99
== END 2024-04-02 22:20 | disposition home or self-care (01) ==
PROVIDERS: Emergency Provider Emergency Medicine; PCP Internal Medicine
DX: R21 Rash and other nonspecific skin eruption (principal); E11.9 Type 2 diabetes mellitus without complications
CPT/HCPCS: 36415; 80053; 81003; 81015; 81025; 82009; 83690; 83735; 85025; 96374; 99283; 99284; J2405

== ENCOUNTER 2024-05-29 20:44 | Emergency (ER) | payer OTHER, SELFPAY ==
[2024-05-29 21:01] VITALS: BP 148/75; PULSE 96; RESP 17; TEMP 36.8; O2SAT 97; BMI 30.7
[2024-05-29 21:44] LABS: Bacteria Urine Occasional (0-1); Mucus Urine 1+ (Negative); RBC Urine 0-1/HPF (0-5/HPF); Squamous Epithelial Cell Urine 1-5 /HPF (0-5/HPF); Urine Volume 10mL (spun); WBC Urine 0-1/HPF (0-5/HPF)
[2024-05-29 21:45] LABS: Culture Indicated Urine Cult Not Indicated
[2024-05-30 02:33] VITALS: PULSE 93; O2SAT 98
[2024-05-30 02:34] VITALS: BP 121/75; PULSE 89; O2SAT 98
--- NOTE | 2024-05-30 02:37 | PC.NURSE ---
Pt states that she has been riding her bike to work. Since then she has been having low back pain and bilateral leg pain. Recent diagnosis of UTI with treatment with cipro, and prednisone. Pt states that she is suppose to have follow up sometime saturday to ensure that she does not have a kidney stone.
[2024-05-30 03:00] VITALS: BP 119/59; PULSE 74; O2SAT 96
[2024-05-30 03:30] VITALS: BP 117/58; PULSE 77; O2SAT 98
--- NOTE | 2024-05-30 03:39 | ED.GENADULT ---
HPI - General Adult General Chief complaint: Ear Stated complaint: cannot hear t-7 Time Seen by Provider: 05/30/24 03:36 Source: patient Mode of arrival: Ambulatory History of Present Illness HPI narrative: 34-year-old female complains of bilateral ear congestion sensation, decreased hearing both ears, currently day 2 of oral ciprofloxacin for urinary tract infection with 1 more course to take, prescribed cetirizine in the past. No ear drainage. No ear trauma. Some sinus congestion as well. She has low back pain after riding her bike, without back support. No bowel or bladder incontinence, denies current shooting pains in the leg, able to walk around without difficulties or weakness. Related Data Home Medications Medication Instructions Recorded Confirmed ciprofloxacin HCl 500 mg tablet mg 05/29/24 Previous Rx's Medication Instructions Recorded cetirizine 10 mg tablet 10 mg PO DAILY #14 tabs 02/08/24 hydrocortisone valerate 0.2 % 1 applic topical QD-TID PRN rash 04/02/24 topical cream #15 grams prednisone 20 mg tablet 40 mg (2 x 20 mg) PO DAILY 3 days 05/30/24 #10 tabs Allergies Allergy/AdvReac Type Severity Reaction Status Date / Time fish derived Allergy Verified 05/29/24 21:06 gluten Allergy Verified 05/29/24 21:06 peanut Allergy Verified 05/29/24 21:06 shellfish derived Allergy Verified 05/29/24 21:06 wheat Allergy Verified 05/29/24 21:06 Patient History Medical History Depression Social History Smoking Status: Never smoker Smoking Status: Never smoker alcohol intake frequency: 0-2 drinks per day Exam Narrative Exam Narrative: GENERAL: Well-developed patient, in mild distress. HEAD: Atraumatic. Normocephalic. EYES: Pupils equal round and reactive. Extraocular motions intact. No scleral icterus. No injection or drainage. ENT: Nose atraumatic without rhinorrhea. TMs with clear fluid behind but normal landmarks, EACs normal. NECK: Trachea midline. Non tender, moves neck well CARDIOVASCULAR: Regular rate and rhythm without murmurs, gallops, or rubs. RESPIRATORY: Clear to auscultation. Breath sounds equal bilaterally. No wheezes, rales, or rhonchi. GASTROINTESTINAL: Abdomen soft, non-tender, nondistended. EXTREMITIES: No edema or joint tenderness. BACK: Nontender without deformity or crepitance. No flank tenderness. No midline or paraspinal muscular tenderness on examination, no scars or lesions or redness or rash or vesicles. NEURO: AOx3. Motor functions grossly nonfocal SKIN: No rash or erythema of visible areas Initial Vital Signs Initial Vital Signs: Vital Signs Temperature 98.3 F 05/29/24 21:01 Pulse Rate 96 H 05/29/24 21:01 Respiratory Rate 17 05/29/24 21:01 Blood Pressure 148/75 H 05/29/24 21:01 Pulse Oximetry 97 05/29/24 21:01 Oxygen Delivery Method Room Air 05/29/24 21:01 Course Orders Ordered: ED Orders 05/29/24 21:34 Urine Microscopic Stat Vital Signs Vital signs: Vital Signs - 8 hr 05/30/24 02:33 05/30/24 02:34 05/30/24 02:34 Pulse Rate 93 H 89 Blood Pressure 121/75 Pulse Oximetry 98 98 Oxygen Delivery Method Room Air 05/30/24 03:00 05/30/24 03:00 05/30/24 03:30 Pulse Rate 74 Blood Pressure 119/59 L 117/58 L Pulse Oximetry 96 Oxygen Delivery Method 05/30/24 03:30 Pulse Rate 77 Blood Pressure Pulse Oximetry 98 Oxygen Delivery Method Room Air Medical Decision Making Lab Data Lab results reviewed: Yes I reviewed the patient's lab results. Lab results narrative: Urinalysis negative. Labs: Lab Results 05/29/24 Range/Units 21:34 Urine RBC 0-1/hpf (0-5/HPF) Urine WBC 0-1/hpf (0-5/HPF) Ur Squamous Epith Cells 1-5 /hpf (0-5/HPF) Urine Bacteria Occasional (0-1) (None) Urine Mucus 1+ H (Negative) Ur Culture Indicated? Cult not indicated Vol Urine Centrifuged 10ml (spun) Urine Dip Bedside Urine Glucose Negative Bedside Urine Bilirubin - Negative Bedside Urine Ketone - Negative Urine Specific [place] 1.020 Bedside Urine Occult Blood + Bedside Urine pH 6.5 Bedside Urine Protein +/- 15 Bedside Urine Urobilinogen - Negative Bedside Urine Nitrite - Negative Bedside Urine Leukocytes - Negative Esterase Point of care testing: Urine Dip Bedside Urine Glucose Negative Bedside Urine Bilirubin - Negative Bedside Urine Ketone - Negative Urine Specific [place] 1.020 Bedside Urine Occult Blood + Bedside Urine pH 6.5 Bedside Urine Protein +/- 15 Bedside Urine Urobilinogen - Negative Bedside Urine Nitrite - Negative Bedside Urine Leukocytes - Negative Esterase MDM Narrative Medical decision making narrative: 34-year-old female with decreased hearing sensation in ear fullness. Low back pain after riding her bike without back support, but no bowel or bladder complaints, walking around, no loss of motor function. Afebrile, sirs screen negative. Urinalysis negative. May continue ciprofloxacin full course dose tomorrow for 3 day course for UTI treatment. Continue cetirizine for serous otitis media symptoms, can add ibuprofen if not already taking for back pain, consider 3 day short course prednisone, she is interested in the steroids, we will send prednisone prescription to her pharmacy. Return precautions discussed. Discharge Plan Departure Patient Disposition: Home Clinical Impression: Acute serous otitis media of both ears Activity Restrictions/Additional Instructions: Decreased hearing sensation with increased ear fullness both ears, no drainage. On examination you have clear fluid behind both eardrums, but no debris or inflammatory change your pus or abnormalities of either anal canal. This no evidence of otitis externa at this time. You have on examination clear fluid behind the eardrums, serous otitis media. But right now there is preservation of the normal eardrum landmarks, and no dullness or redness to suggest suppurative (infected/bacterial) otitis media. Antibiotics not indicated at this time specifically for otitis media. You are taking ciprofloxacin for urinary tract infection, which might also be sterilizing the middle ear space. Continue your antibiotic course as planned for urinary tract infection. Urine test negative today. Continue taking cetirizine antihistamine listed on your medications, as antihistamines might be helpful. Take ibuprofen as needed for discomfort as well, also an anti-inflammatory which might help clear the fluid as well. Short course prednisone discussed, which he would like to try, 3 days' supply, to see if this might help clear the fluid from your middle ear area as well. Recheck symptoms next week if persisting. Return to this/nearest emergency department for any change worsening symptoms or any concerns prior. Contact also provided to see local otolaryngology providers, not on-call today here, though you might require referral from your primary care provider. Prescriptions: New prednisone 20 mg tablet 40 mg PO DAILY 3 Days Qty: 10 0RF No Action cetirizine 10 mg tablet 10 mg PO DAILY Qty: 14 0RF hydrocortisone valerate 0.2 % cream 1 applic topical QD-TID PRN (Reason: rash) Qty: 15 1RF ciprofloxacin HCl 500 mg tablet Referrals: Huber Salmeron MD [Physician] - Altaf Anderson MD [Physician] - Carlos Grimes MD [Primary Care Provider] - Stand Alone Forms: Patient Portal/API/Survey
== END 2024-05-30 04:05 | disposition home or self-care (01) ==
PROVIDERS: Emergency Provider Emergency Medicine; PCP Internal Medicine
DX: H65.03 Acute serous otitis media, bilateral (principal); M54.50 Low back pain, unspecified; N39.0 Urinary tract infection, site not specified
CPT/HCPCS: 81003; 81015; 99282

== ENCOUNTER 2024-06-29 19:04 | Emergency (ER) | payer OTHER, SELFPAY ==
[2024-06-29 19:06] VITALS: BP 120/75; PULSE 105; RESP 18; TEMP 36.4; O2SAT 98; BMI 29.1
[2024-06-29] MEDS: FAMOTIDINE 20 MG/2 ML VIAL IV (19:17)
[2024-06-29] MEDS: methylPREDNISolone 125 MG/2 ML VIAL IV (19:18)
[2024-06-29 20:55] VITALS: BP 135/77; PULSE 96; RESP 20; O2SAT 99
--- NOTE | 2024-06-29 21:30 | ED_ITS ---
HPI - Allergic Reaction General Chief complaint: Allergic Reaction Stated complaint: allergic reaction Time Seen by Provider: 06/29/24 21:30 Source: patient Mode of arrival: Ambulatory Limitations: no limitations History of Present Illness HPI narrative: 34-year-old female known peanut allergy states she accidentally had a peanut earlier this morning. She states she spit it out as soon as she realizes it was in her mouth. She thought that would be enough to prevent symptoms but she was continued to have some symptoms throughout the day. She has had some swelling of her tongue, neck and airway, she was had hives. She was felt tight in her chest. No vomiting but nausea. No syncope. Patient denies any other symptoms. She does have an EpiPen at home but did not feel like she needed it. She did not want to take any Benadryl because it makes her very sleepy and she has to care for children. She refused any benadryl int he department. She presents with persistent symptoms throughout the day from this morning slowly progressive but not rapidly worsening. Related Data Home Medications Medication Instructions Recorded Confirmed ciprofloxacin HCl 500 mg tablet mg 05/29/24 Previous Rx's Medication Instructions Recorded cetirizine 10 mg tablet 10 mg PO DAILY #14 tabs 02/08/24 hydrocortisone valerate 0.2 % 1 applic topical QD-TID PRN rash 04/02/24 topical cream #15 grams prednisone 20 mg tablet 40 mg (2 x 20 mg) PO DAILY 3 days 06/29/24 #6 tabs Allergies Allergy/AdvReac Type Severity Reaction Status Date / Time fish derived Allergy Verified 06/29/24 19:06 gluten Allergy Verified 06/29/24 19:06 peanut Allergy Verified 06/29/24 19:06 shellfish derived Allergy Verified 06/29/24 19:06 wheat Allergy Verified 06/29/24 19:06 Review of Systems Review of Systems ROS Unobtainable: All systems reviewed & are unremarkable except as noted in HPI and below Patient History Medical History Depression Social History Smoking Status: Never smoker Smoking Status: Never smoker alcohol intake frequency: 0-2 drinks per day Exam Narrative Exam Narrative: GEN: well nourished, well appearing female, alert and oriented x mild, patient appears to be in mild distress. Patient is standing and walking in the room with her children. HEENT: Atraumatic, pupils are equal round reactive to light, extraocular movements are intact, nares are clear, TMs are clear with no fluid, there is no conjunctival pallor. Throat is clear without any exudates, erythema, tonsillar enlargement or uvular deviation, no oropharyngeal swelling appreciated, no swelling of the tongue or lips. No stridor. No muffled voice. HEART: Regular rate and rhythm without murmur, clicks, rubs. LUNGS:Lungs clear to auscultation, no wheezes, rales, crackles, chest moves symmetrically ABD:bowel sounds normal, soft, non-tender, no guarding, rebound, rigidity, no masses noted, no hepatosplenomegaly MSCL: Non-tender, no muscle atrophy, muscles strength 5/5 upper and lower extremities, full range of motion, normal gait NEURO:CN 2-12 intact, sensation normal SKIN: Hives on extremities Initial Vital Signs Initial Vital Signs: Vital Signs Temperature 97.5 F L 06/29/24 19:06 Pulse Rate 105 H 06/29/24 19:06 Respiratory Rate 18 06/29/24 19:06 Blood Pressure 120/75 06/29/24 19:06 Pulse Oximetry 98 06/29/24 19:06 Oxygen Delivery Method Room Air 06/29/24 19:06 Course Orders Ordered: Discontinued Medications Famotidine (Famotidine 20 Mg/2 Ml Vial) 20 mg IV NOW RICCO Last Admin: 06/29/24 19:17 Dose: 20 mg Documented By: FELICITY Methylprednisolone (Methylprednisolone 125 Mg/2 Ml Vial) 125 mg IV NOW ONE Stop: 06/29/24 19:11 Last Admin: 06/29/24 19:18 Dose: 125 mg Documented By: FELICITY Vital Signs Vital signs: Vital Signs - 8 hr 06/29/24 19:06 06/29/24 20:55 Temperature 97.5 F L Pulse Rate 105 H 96 H Respiratory Rate 18 20 Blood Pressure 120/75 135/77 Pulse Oximetry 98 99 Oxygen Delivery Method Room Air Room Air MDM - Allergic Reaction MDM Narrative Medical decision making narrative: 34-year-old female with a history of peanut allergy has had symptoms since this morning when she accidentally got one in her mouth but spit it out before she swallowed it. Has not had any Benadryl but politely refuses here she had Pepcid and Solu-Medrol department she feels her symptoms are improving since she has been here she was not had any worsening. She has been here about 2 hours she was requesting discharge home as she was small children with her and they are quite active. She notes she was improving, ambulating and been active with her children without any issue here. She does have an EpiPen at home. Plan for discharge home will send prescription for oral steroids for several days discussed return precautions all questions answered. Discharge Plan Departure Patient Disposition: Home Clinical Impression: Allergic reaction Activity Restrictions/Additional Instructions: Follow up for recheck as needed. Prescription for steroids was sent to [facility] in [place]. You can take [id number] Claritin such as loratadine or Zyrtec if you find Benadryl too sedating. Please return for new or worsening symptoms. Prescriptions: New prednisone 20 mg tablet 40 mg PO DAILY 3 Days Qty: 6 0RF No Action cetirizine 10 mg tablet 10 mg PO DAILY Qty: 14 0RF hydrocortisone valerate 0.2 % cream 1 applic topical QD-TID PRN (Reason: rash) Qty: 15 1RF ciprofloxacin HCl 500 mg tablet Referrals: Carlos Grimes MD [Primary Care Provider] - Stand Alone Forms: Patient Portal/API/Survey
--- NOTE | 2024-06-29 22:16 | PC.NURSE ---
The pt called at 2215 and asked to speak with a nurse, this nurse speaking with the pt. Pt reporting she is having trouble breathing. This nurse tell her to use her epi pen and call 911. The pt states she is throwing up. This nurse again tell the pt to use her epi pen and call 911. Pt then hung up. Charge nurse aware. Dr. Dunn aware.
--- NOTE | 2024-06-29 22:22 | PC.NURSE ---
Dr. Dunn asks this nurse to call pt back and check on her. This nurse called the pt back at 2221 and pt answered. Pt states she is going to take Benadryl instead of using her epi pen. This nurse informs she cannot give medical advice but if she needs help to call 911.
== END 2024-06-29 21:37 | disposition home or self-care (01) ==
PROVIDERS: Emergency Provider Emergency Medicine; PCP Internal Medicine
DX: T78.1XXA Other adverse food reactions, not elsewhere classified, initial encounter (principal); X58.XXXA Exposure to other specified factors, initial encounter
CPT/HCPCS: 96374; 96375; 99283; 99284; J2919

== ENCOUNTER 2024-10-23 00:07 | Emergency (ER) | payer OTHER, SELFPAY ==
[2024-10-23 00:12] VITALS: BP 122/80; PULSE 81; RESP 16; TEMP 36.2; O2SAT 98; BMI 34.1
[2024-10-23 02:42] VITALS: BP 139/73
[2024-10-23 02:44] VITALS: PULSE 86; O2SAT 96
--- NOTE | 2024-10-23 02:45 | DI.CT.S_ITS ---
PROCEDURE: CT HEAD/BRAIN WO CON INDICATIONS: headache TECHNIQUE: Noncontrast 4.5 mm thick angled axial sections acquired from the foramen magnum to the vertex, with coronal and sagittal reformats. For radiation dose reduction, the following was used: automated exposure control, adjustment of mA and/or kV according to patient size. COMPARISON: None. FINDINGS: Image quality: Diagnostic. CSF spaces: Basal cisterns are patent. No extra-axial fluid collections. Ventricles are normal in size and shape. Brain: No midline shift. No intracranial mass effect or hemorrhage. Moyer- white matter interface is normal. Skull and face: Calvarium and visualized facial bones are intact, without suspicious lesions. Sinuses: Visualized sinuses and mastoids are clear. IMPRESSION: No acute intracranial pathology. No significant discrepancy with the manager night radiology preliminary report. Dictated by: Mark Arriola M.D. on 10/23/2024 at 6:55 Approved by: Mark Arriola M.D. on 10/23/2024 at 6:57
[2024-10-23 03:07] VITALS: PULSE 85; O2SAT 98
[2024-10-23] MEDS: KETOROLAC 30 MG/ML VIAL IV (03:09)
[2024-10-23] MEDS: SODIUM CHLORIDE 0.9% 1,000 ML 1000 ML IV (03:09)
[2024-10-23] MEDS: ONDANSETRON 4 MG/2 ML INJ IV (03:09)
[2024-10-23 03:17] LABS: Add Manual Diff / Slide Review NO; Hematocrit 33.5 % (36-46); Hemoglobin 11.3 g/dL (12.0-16.0); Lymphocytes Absolute Auto 2000 /uL (1100-4500); Mean Corpuscular HGB Conc 33.7 % (30-36); Mean Corpuscular Hemoglobin 27.7 PG (26-34); Mean Corpuscular Volume 82.3 fL (80-100); Platelet Count 275 X10^3/uL (150-400)
[2024-10-23 03:26] LABS: INR 0.9 (0.9-1.3); Prothrombin Time 10.1 SECONDS (9.4-12.5)
[2024-10-23 03:29] LABS: PTT Partial Thromboplastin Tim 28 SECONDS (25.1-36.5)
[2024-10-23 03:30] LABS: Alanine Aminotransferase 34 IU/L (<35); Albumin 4.2 g/dL (3.5-5.0); Albumin Globulin Ratio 1.6 (1.0-2.8); Alkaline Phosphatase 47 U/L (38-126); Blood Urea Nitrogen 12 mg/dL (7-17); Calcium 8.4 mg/dL (8.4-10.2); Carbon Dioxide 24 mmol/L (22-32); Chloride 107 mmol/L (98-107); Estimated Glomerular Filt Rate > 60 mL/min (>60); Globulin 2.6 g/dL (1.7-4.1); Glucose 105 mg/dL (70-99); HEMOLYSIS < 15 (0-50); Magnesium 1.7 mg/dL (1.6-2.3); Potassium 3.6 mmol/L (3.4-5.1); Sodium 138 mmol/L (137-145); Total Protein 6.8 g/dL (6.3-8.2)
[2024-10-23 04:00] LABS: Thyroid Stimulating Hormone 3.53 uIU/mL (0.47-4.68)
--- NOTE | 2024-10-23 06:19 | ED.HA ---
HPI - Headache General Chief Complaint: Headache Stated Complaint: headache, swelling in back of head Time Seen by Provider: 10/23/24 01:05 Mode of arrival: Ambulatory History of Present Illness HPI Narrative: 34-YEAR-OLD WOMAN WITH A REMOTE HISTORY OF MIGRAINES COMES TO THE ER TODAY WITH A HEADACHE THAT HAS BEEN GOING ON FOR 3 DAYS ACCOMPANIED BY INTERMITTENT AND TRANSIENT NUMBNESS OF ALL 4 EXTREMITIES. CURRENTLY SHE HAS NONE OF THOSE SYMPTOMS. SHE IS ALSO EXPERIENCING NAUSEA WITH THIS. SHE DENIES ANY RECENT FEVER, CHILLS, SWEATS OR ANY OTHER INCITING CAUSE FOR THIS HEADACHE. NO RECENT TRAUMA. NOT ON BLOOD THINNERS. Related Data Home Medications ?Medication ?Instructions ?Recorded ?Confirmed ciprofloxacin HCl 500 mg tablet mg 05/29/24 Previous Rx's ?Medication ?Instructions ?Recorded cetirizine 10 mg tablet 10 mg PO DAILY #14 tabs 02/08/24 hydrocortisone valerate 0.2 % 1 applic topical QD-TID PRN rash 04/02/24 topical cream #15 grams Allergies Allergy/AdvReac Type Severity Reaction Status Date / Time fish derived Allergy Verified 10/23/24 00:12 gluten Allergy Verified 10/23/24 00:12 peanut Allergy Verified 10/23/24 00:12 shellfish derived Allergy Verified 10/23/24 00:12 wheat Allergy Verified 10/23/24 00:12 Patient History Medical History Depression Smoking Status: Never smoker alcohol intake frequency: 0-2 drinks per day Exam Initial Vital Signs Initial Vital Signs: Vital Signs Temperature 97.1 F L 10/23/24 00:12 Pulse Rate 81 10/23/24 00:12 Respiratory Rate 16 10/23/24 00:12 Blood Pressure 122/80 10/23/24 00:12 Pulse Oximetry 98 10/23/24 00:12 Oxygen Delivery Method Room Air 10/23/24 00:12 Const General: cooperative, No acute distress and No ill appearing Limitations: mental status not altered [facility] Head: normal to inspection, normocephalic and atraumatic Ears: hearing grossly normal bilaterally Face and sinus: normal facial exam Throat: posterior oropharynx normal Eyes General: Yes appearance normal, both eyes and all related structures Pupils: PERRL EOM: EOM intact bilaterally Neck Neck: normal visual inspection and No full ROM Resp Effort & Inspection: normal respiratory effort Auscultation: clear to auscultation bilaterally Cardio Rate: regular rate Rhythm: regular rhythm Heart Sounds: S1 normal and S2 normal GI Palpation: soft and No tender Neuro General: patient alert, patient awake, patient oriented x3 and normal light touch, pain and propioception Cranial Nerves: CN's II-XI intact bilaterally Course Course Course Narrative: PATIENT SEEN AND EXAMINED BY MYSELF IN THE ER. IT WAS CONCERNING THAT THIS WAS THE WORST HEADACHE OF HER LIFE SO I DID DO A CT WHICH WAS NEGATIVE. THE REMAINDER OF HER WORKUP WAS UNREMARKABLE WELL. SHE RESPONDED REALLY WELL TO MIGRAINE COCKTAIL OF FLUIDS BENADRYL ZOFRAN AND TORADOL. I ADVISED HER TO RETURN FOR ANY NEW OR WORSENING SYMPTOMS AND OTHERWISE ADVISED HER TO CALL HER PCP TODAY TO HAVE A FOLLOW UP APPOINTMENT WITH THEM SOON POSSIBLE. SHE WAS IN AGREEMENT WITH THIS PLAN. Orders Ordered: ED Orders 10/23/24 02:45 CT head/brain wo con Stat 10/23/24 03:05 CBC Auto Diff [Complete Blood Count AUTO DIFF] Stat CMP [Comprehensive Metabolic Panel] Stat MAG [Magnesium] Stat PTT Partial Thromboplastin Justin Stat Prothrombin Time INR Stat TSH [Thyroid Stimulating Hormone] Stat Discontinued Medications Diphenhydramine HCl (Diphenhydramine 50 Mg/Ml Vial) 50 mg IV NOW ONE Stop: 10/23/24 02:46 Last Admin: 10/23/24 03:10 Dose: Not Given Documented By: Sodium Chloride (Normal Saline 0.9%) 1,000 mls @ 1,000 mls/hr IV BOLUS ONE Stop: 10/23/24 03:44 Last Infusion: 10/23/24 05:25 Dose: Infused Documented By: Admin: 10/23/24 03:09 Dose: 1,000 mls/hr Documented By: Ketorolac Tromethamine (Ketorolac 30 Mg/Ml Vial) 30 mg IV NOW ONE Stop: 10/23/24 02:46 Last Admin: 10/23/24 03:09 Dose: 30 mg Documented By: Ondansetron HCl (Ondansetron 4 Mg/2 Ml Inj) 4 mg IV NOW ONE Stop: 10/23/24 02:46 Last Admin: 10/23/24 03:09 Dose: 4 mg Documented By: Vital Signs Vital signs: Vital Signs - 8 hr 10/23/24 00:12 10/23/24 02:42 10/23/24 02:44 Temperature 97.1 F L Pulse Rate 81 86 Respiratory Rate 16 Blood Pressure 122/80 139/73 Pulse Oximetry 98 96 Oxygen Delivery Method Room Air 10/23/24 03:07 Temperature Pulse Rate 85 Respiratory Rate Blood Pressure Pulse Oximetry 98 Oxygen Delivery Method Room Air MDM - Headache Lab Data 10/23/24 03:05 10/23/24 03:05 Labs: Lab Results 10/23/24 Range/Units 03:05 WBC 4.5 (4.5-11.0) X10^3/uL RBC 4.07 (4.0-5.2) X10^6/uL Hgb 11.3 L (12.0-16.0) g/dL Hct 33.5 L (36-46) % MCV 82.3 (80-100) fL MCH 27.7 (26-34) PG MCHC 33.7 (30-36) % RDW 14.0 (11.6-14.8) % Plt Count 275 (150-400) X10^3/uL Neut % (Auto) 29.5 L (50-75) % Lymph % (Auto) 45.7 H (25-40) % [place] % (Auto) 15.6 H (3-14) % Eos % (Auto) 8.6 H (2-4) % Baso % (Auto) 0.6 (0-2) % Neut # (Auto) 1300 L (5828-1951) /uL Lymph # (Auto) 2000 (9701-8832) /uL [place] # (Auto) 700 (0-900) /uL Eos # (Auto) 400 (0-450) /uL Baso # (Auto) 0 (0-100) /uL PT 10.1 (9.4-12.5) SECONDS INR 0.9 (0.9-1.3) APTT 28 (25.1-36.5) SECONDS Sodium 138 (137-145) mmol/L Potassium 3.6 (3.4-5.1) mmol/L Chloride 107 (98-107) mmol/L Carbon Dioxide 24 (22-32) mmol/L BUN 12 (7-17) mg/dL Creatinine 0.59 (0.52-1.04) mg/dL Estimated GFR > 60 (>60) mL/min BUN/Creatinine Ratio 20.3 (6-22) Glucose 105 H (70-99) mg/dL Calcium 8.4 (8.4-10.2) mg/dL Magnesium 1.7 (1.6-2.3) mg/dL Total Bilirubin 0.2 (0.2-1.3) mg/dL AST 37 H (14-36) IU/L ALT 34 (<35) IU/L Alkaline Phosphatase 47 (38-126) U/L Total Protein 6.8 (6.3-8.2) g/dL Albumin 4.2 (3.5-5.0) g/dL Globulin 2.6 (1.7-4.1) g/dL Albumin/Globulin Ratio 1.6 (1.0-2.8) TSH 3.53 (0.47-4.68) uIU/mL Discharge Plan Departure Patient Disposition: Home Clinical Impression: Migraine Qualifiers: Migraine type: unspecified Status migrainosus presence: without status migrainosus Intractability: not intractable Qualified Code(s): G43.909 - Migraine, unspecified, not intractable, without status migrainosus Instructions: DI for Headache Activity Restrictions/Additional Instructions: If there is any change or worsening in your condition such as a worsening or [id number]-hr-[id number] headache, any new neurological symptoms like persistent numbness tingling or weakness/paralysis of any part of the body or if you begin to have fevers, neck stiffness or any other change or worsening in your condition then please return to the ER immediately for further evaluation. Otherwise, please call your PCP in the morning and schedule an appointment to be seen as soon as possible. If you continued to have headaches like this more frequently you should seek neurology referral. Prescriptions: No Action cetirizine 10 mg tablet 10 mg PO DAILY Qty: 14 0RF hydrocortisone valerate 0.2 % cream 1 applic topical QD-TID PRN (Reason: rash) Qty: 15 1RF ciprofloxacin HCl 500 mg tablet Referrals: Carlos Grimes MD [Primary Care Provider, Internal Medicine] - As soon as possible Stand Alone Forms: Patient Portal/API
[2024-10-23 06:48] VITALS: BP 99/55; PULSE 72; O2SAT 95
== END 2024-10-23 07:10 | disposition home or self-care (01) ==
PROVIDERS: Emergency Provider Emergency Medicine; PCP Internal Medicine
DX: G43.909 Migraine, unspecified, not intractable, without status migrainosus (principal); R20.0 Anesthesia of skin; R11.0 Nausea
CPT/HCPCS: 36415; 70450; 80053; 83735; 84443; 85025; 85610; 85730; 96361; 96374; 96375; 99284; J1885; J2405

== ENCOUNTER 2025-01-06 08:59 | Day surgery (SDC) | payer OTHER, SELFPAY ==
[2024-12-30 12:06] VITALS: BMI 34.9
[2025-01-06] VITALS (13 sets, daily range): BP systolic 121–154; BP diastolic 58–93; PULSE 88–109; RESP 9–22; TEMP 36.2–36.4; O2SAT 94–99; BMI 34.9
--- NOTE | 2025-01-06 | PATH_ITS ---
[facility] Accession Number: [id number] No. of containers..01 Tissue . 01 Material submitted: . gallbladder - GALLBLADDER . 01 Diagnosis: GALLBLADDER, CHOLECYSTECTOMY: Cystic duct lymph node with reactive features. Chronic cholecystitis, cholesterolosis, and cholelithiasis. MRV 01/14/2025 1446 Local . 01 Electronically signed: . Kristal Valladares MD, Pathologist NPI- [id number] . 01 Gross description: . Received in formalin with two identifiers and gallbladder is an intact gallbladder, 10.4 x 3.0 x 2.9 cm with an unremarkable external surface. The cystic duct margin is inked blue, and a violaceous lymph node candidate is 1.2 cm in greatest dimension. The lumen contains multiple bosselated calculi, up to 1.3 cm in greatest dimension not grossly obstructing the cystic duct, and admixed with dark green mucoid bile. The mucosa is green and moderately trabecular with no yellow discoloration, polyps, or lesions identified. The arellano average 0.2 cm thick. General Engineer sections to include the cystic duct margin, one-half of the bisected lymph node candidate, and full-thickness sections are submitted in A1. ([id number]) /MRV 01/07/2025 1604 Local . 01 Pathologist provided ICD-10: K80.60 . 01 CPT . 727893 Specimen Comment: A courtesy copy of this report has been sent to [phone] Performed at: [address] [facility] [address], [place], [place] [id number] MD Genaro Menchaca MD Phone: [phone]
--- NOTE | 2025-01-06 09:37 | PM.PREOP ---
Pre-operative Note COVID-19 COVID-19 status: Not tested Interval Note History & Physical reviewed/Exam performed by Physician: Yes Changes to H&P: No ASA Class (for procedural sedation): II
[2025-01-06] MEDS: ACETAMINOPHEN 325 MG TABLET 975 MG PO (09:47)
[2025-01-06] MEDS: LACTATED RINGERS 1,000 ML 42 ML IV ×2 (09:48→11:34)
--- NOTE | 2025-01-06 11:34 | PM.OP.1 ---
Operative Date/Time/Diagnoses Date of procedure: 01/06/25 Time of procedure: 11:34 Pre-op diagnosis: Symptomatic cholelithiasis Post-op diagnosis: same Procedure & Clinicians Procedure: Laparoscopic cholecystectomy Same procedure(s) as scheduled: Yes Surgeon: Cory Bourne Assisted?: No Anesthesia Type: General Operative Notes Findings: Minimal inflammation Applied: none Estimated Blood Loss (mL): 25 Procedure in detail: The patient was given preoperative antibiotics. The patient was brought to the operating room and placed on the table in the supine position. General endotracheal anesthesia was induced. The abdomen was prepped and draped. A time-out was performed. We made a 1 cm infraumbilical incision. We dissected down to the base of the umbilical stalk using cautery. We grasped the umbilical stalk with a Az clamp to elevate the abdominal wall. We scored the fascia in the midline with cautery. We pierced the peritoneum with a Peon clamp. The Vicky port was placed and the abdomen was insufflated to 15 mmHg. A 5 mm 30 degree laparoscopic was inserted. There was no evidence of any injury from the entry. Next, we placed 5 mm ports in the subxiphoid position and right upper quadrant at the midclavicular line and anterior axillary line. The patient was then positioned in reverse Trendelenburg and the table was tilted to the left. The gallbladder was grasped at the dome and retracted cephalad. There were no adhesions. We then dissected the cystic structures with a combination of hook cautery and blunt dissection. We obtained a critical view. We placed clips on the cystic duct and two branches of the cystic artery and divided the cystic duct and artery branches sharply between the clips. The gallbladder was then dissected off the liver and placed in a specimen retrieval bag. We irrigated the right upper quadrant and all the aspirate returned clear. We then removed the 5 mm ports under direct vision we removed the Vicky port. We then injected some local into the fascia and closed the fascia with 2 interrupted 0 Vicryl sutures. The skin incisions were closed with 4-0 Monocryl and Steri-Strips were applied. Band-Aids were applied over the Steri-Strips. EBL: 25 mL Specimen: Gallbladder and contents Complications: none Post-operative Condition: stable Disposition: PACU
[2025-01-06] MEDS: ONDANSETRON 4 MG/2 ML INJ IV (12:00)
== END 2025-01-06 13:10 | disposition home or self-care (01) ==
PROVIDERS: PCP Internal Medicine; Referring Provider Surgery; Visit Provider Surgery
PROC: 0FT44ZZ Resection of Gallbladder, Percutaneous Endoscopic Approach (ICD-10-PCS; CPT 47562; principal; 2025-01-06 10:15)
DX: K80.10 Calculus of gallbladder with chronic cholecystitis without obstruction (principal)
CPT/HCPCS: 47562; 82962; J0689; J1100; J1171; J1885; J2250; J2405; J2704; J3010; J7120

== ENCOUNTER → 2025-01-19 11:05 | Outpatient (CLI) | payer OTHER, SELFPAY ==
[2025-01-19 12:07] LABS: Add Manual Diff / Slide Review NO; Hematocrit 38.6 % (36-46); Hemoglobin 12.8 g/dL (12.0-16.0); Lymphocytes Absolute Auto 1800 /uL (1100-4500); Mean Corpuscular HGB Conc 33.1 % (30-36); Mean Corpuscular Hemoglobin 27.1 PG (26-34); Mean Corpuscular Volume 81.7 fL (80-100); Platelet Count 336 X10^3/uL (150-400)
[2025-01-19 13:03] LABS: Alanine Aminotransferase 55 IU/L (<35); Albumin 4.9 g/dL (3.5-5.0); Albumin Globulin Ratio 1.5 (1.0-2.8); Alkaline Phosphatase 51 U/L (38-126); Blood Urea Nitrogen 20 mg/dL (7-17); Calcium 9.9 mg/dL (8.4-10.2); Carbon Dioxide 22 mmol/L (22-32); Chloride 104 mmol/L (98-107); Estimated Glomerular Filt Rate > 60 mL/min (>60); Globulin 3.3 g/dL (1.7-4.1); Glucose 90 mg/dL (70-99); HEMOLYSIS < 15 (0-50); Potassium 4.7 mmol/L (3.4-5.1); Sodium 137 mmol/L (137-145); Total Protein 8.2 g/dL (6.3-8.2)
== END ==
PROVIDERS: PCP Internal Medicine; Referring Provider Surgery; Visit Provider Surgery
DX: K80.20 Calculus of gallbladder without cholecystitis without obstruction (principal)
CPT/HCPCS: 36415; 80053; 85025

== ENCOUNTER → 2025-02-02 09:40 | Outpatient (CLI) | payer OTHER, SELFPAY ==
--- NOTE | 2025-02-02 11:03 | DI.CT.S_ITS ---
PROCEDURE: CT ABDOMEN PELVIS [facility] INDICATIONS: Abdominal and back pain TECHNIQUE: After the administration of intravenous contrast, axial sections acquired from the lung bases to the pubic symphysis. Coronal and sagittal reformats were performed. For radiation dose reduction, the following was used: automated exposure control, adjustment of mA and/or kV according to patient size. COMPARISON: Outside Facility, CT, CT ABDOMEN PELVIS WO [facility], 07/20/2023, 21:58. FINDINGS: Image quality: Diagnostic. Lower Chest: No significant findings. ABDOMEN: Liver: Mild hepatomegaly and hepatic steatosis. No solid or cystic liver mass. Gallbladder: Surgically absent. No fluid collection or inflammation in the gallbladder fossa. Biliary ducts: Appropriate biliary tree caliber post cholecystectomy. Pancreas: Normal size and morphology without visible ductal dilatation or inflammation. Spleen: Size is within normal limits. Adrenal Glands: No adrenal nodules. Kidneys and Ureters: Symmetric enhancement. Normal renal sizes. Mild left mid to lower pole hydronephrosis and renal pelvis dilatation. No left hydroureter. There is a transition point in the proximal ureter at the junction between the left renal artery and overlying left ovarian vein. No urinary calcifications. Stomach and Bowel: Stomach and small bowel loops are normal caliber. Normal appendix. Normal quantity of colonic stool. No suspicious colon wall thickening or inflammation. Peritoneum: No abnormal intraperitoneal fluid. No free air. Ventral Wall: Narrow necked fat containing periumbilical hernia. Additional surgical changes in the subcutaneous Lynne umbilical regions suggesting prior hernia repair. Abdominal Nodes: No retroperitoneal or mesenteric adenopathy by size criteria. Vessels: The abdominal aorta, IVC, and portal vein are of normal caliber. PELVIS: Pelvic Organs: Uterus and ovaries are normal. Bladder: No stones or wall thickening. Pelvic Nodes: No enlarged lymph nodes. Miscellaneous: No inguinal hernias are seen. Bones: No aggressive osseous abnormality. 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 Correlate clinically to determine significance. Mild hepatomegaly and hepatic steatosis. No evidence complication post cholecystectomy. Dictated by: Ana Mckeon M.D. on 02/02/2025 at 13:13 Approved by: Ana Mckeon M.D. on 02/02/2025 at 13:22
== END ==
LOC: CT 09:40
PROVIDERS: PCP Internal Medicine; Referring Provider Internal Medicine; Visit Provider Surgery
DX: N13.30 Unspecified hydronephrosis (principal); K42.9 Umbilical hernia without obstruction or gangrene; K76.0 Fatty (change of) liver, not elsewhere classified; R10.9 Unspecified abdominal pain; Z90.49 Acquired absence of other specified parts of digestive tract
CPT/HCPCS: 74177; Q9967

== ENCOUNTER 2025-03-16 18:48 | Emergency (ER) | payer OTHER, SELFPAY ==
[2025-03-16 18:57] VITALS: BP 140/84; PULSE 105; RESP 16; TEMP 36.9; O2SAT 98; BMI 34.6
[2025-03-16 19:40] VITALS: BP 138/88; PULSE 101; RESP 24; O2SAT 98
[2025-03-16] MEDS: ONDANSETRON 4 MG/2 ML INJ IV (19:42)
[2025-03-16 19:43] LABS: Add Manual Diff / Slide Review NO; Hematocrit 39.0 % (36-46); Hemoglobin 13.4 g/dL (12.0-16.0); Lymphocytes Absolute Auto 1200 /uL (1100-4500); Mean Corpuscular HGB Conc 34.4 % (30-36); Mean Corpuscular Hemoglobin 28.1 PG (26-34); Mean Corpuscular Volume 81.7 fL (80-100); Platelet Count 300 X10^3/uL (150-400)
--- NOTE | 2025-03-16 19:47 | ED.ABDPAIN ---
HPI - Abdominal Pain General Chief Complaint: Abdominal Pain Stated Complaint: abd px/N/V/dizzy/diabetic problem Time Seen by Provider: 03/16/25 19:39 Source: patient Mode of arrival: Family Vehicle History of Present Illness HPI narrative: This is a 34-year-old white female presents to the emergency room with several days of right-sided abdominal pain and swelling. Patient says the right side of her abdomen feels bigger than the left. Patient also complaining of nausea vomiting diarrhea no melena hematochezia or hematemesis no dysuria pyuria or hematuria no vaginal bleeding or discharge. Patient describes the pain is simply has pain unprovoked intermittent and self-limited. Related Data Home Medications ?Medication ?Instructions ?Recorded ?Confirmed bupropion HCl 150 mg 24 hr tablet, 150 mg PO DAILY 12/25/24 01/06/25 extended release bupropion HCl 300 mg 24 hr tablet, 300 mg PO DAILY 12/25/24 12/25/24 extended release metformin 500 mg tablet 250 mg PO BID PRN diabetes mellitus 12/25/24 01/06/25 methylphenidate HCl 20 mg biphasic 20 mg PO QAM 12/25/24 12/25/24 50-50 capsule,extended release methylphenidate HCl 20 mg tablet 20 mg PO DAILY 12/25/24 12/25/24 ondansetron 4 mg disintegrating 4 mg PO 3XD 12/25/24 01/06/25 tablet pen needle, diabetic 32 gauge x #100 ea 12/25/24 12/25/2404/11 (Novofine 32) prednisone 20 mg tablet 20 mg PO BID 12/25/24 12/25/24 tretinoin 0.025 % topical cream applic topical 12/25/24 12/25/24 tirzepatide 2.5 mg/0.5 mL mg SUBCUT 01/19/25 01/19/25 subcutaneous pen injector (Anupama) Previous Rx's ?Medication ?Instructions ?Recorded cetirizine 10 mg tablet 10 mg PO DAILY #14 tabs 02/08/24 dicyclomine 10 mg capsule 10 mg PO QID PRN abdominal pain 03/16/25 #20 caps prochlorperazine 25 mg rectal 25 mg SD BID PRN nausea and 03/16/25 suppository vomiting #12 ea Allergies Allergy/AdvReac Type Severity Reaction Status Date / Time fish derived Allergy Verified 03/16/25 18:57 gluten Allergy Verified 03/16/25 18:57 peanut Allergy Verified 03/16/25 18:57 shellfish derived Allergy Verified 03/16/25 18:57 wheat Allergy Verified 03/16/25 18:57 Review of Systems Review of Systems Narrative: GENERAL: Denies chills, fatigue, malaise, fever, sweats. HEENT: Denies sinus pain, ear pain, sore throat, difficulty swallowing, dizziness. RESPIRATORY: Denies dyspnea, cough, wheezing, hemoptysis, sputum. CARDIOVASCULAR: Denies chest pain, palpitations, orthopnea, edema, GASTROINTESTINAL: See HPI : Denies dysuria, frequency, incontinence, hematuria, urinary retention. MUSCULOSKELETAL: denies weakness, joint pain, or bony pain SKIN: Denies rash, skin lesions, or other NEUROLOGIC: Denies weakness, headache, numbness, change in speech, confusion, seizures, incoordination. PSYCHIATRIC: No concerning psychosocial issues. 12 point review of systems is negative except for those stated above Patient History Medical History (Updated 03/16/25 @ 21:57 by Deric Serna MD) Depression Surgical History (Updated 12/30/24 @ 12:11 by Martina Salinas RN) S/P panniculectomy Social History household members: none Smoking Status: Never smoker alcohol intake: current Smoking Status: Never smoker alcohol intake frequency: 0-2 drinks per day Exam Narrative Exam Narrative: GENERAL: [] year old patient appears stated age. Well-developed patient, in mild distress. HEAD: Atraumatic. Normocephalic. EYES: Pupils equal round and reactive. Extraocular motions intact. No scleral icterus. No injection or drainage. ENT: Nose without bleeding, purulent drainage. Throat without erythema, tonsillar hypertrophy or exudate. Airway patent. NECK: Trachea midline. Non tender CARDIOVASCULAR: Regular rate and rhythm without murmurs, gallops, or rubs. RESPIRATORY: Clear to auscultation. Breath sounds equal bilaterally. No wheezes, rales, or rhonchi. GASTROINTESTINAL: Abdomen soft, mid right-sided tenderness no guarding or rebound , nondistended. EXTREMITIES: No edema or joint tenderness. BACK: Nontender without deformity or crepitance. No flank tenderness. NEURO: AOx3. SKIN: No rash or erythema of visible areas Initial Vital Signs Initial Vital Signs: Vital Signs Temperature 98.4 F 03/16/25 18:57 Pulse Rate 105 H 03/16/25 18:57 Respiratory Rate 16 03/16/25 18:57 Blood Pressure 140/84 03/16/25 18:57 Pulse Oximetry 98 03/16/25 18:57 Oxygen Delivery Method Room Air 03/16/25 18:57 Course Orders Ordered: ED Orders 03/16/25 19:30 Complete Blood Count AUTO DIFF Stat Comprehensive Metabolic Panel Stat Lipase Stat Test Serum,Qual Stat 03/16/25 19:55 Ictotest Urine Stat Urinalysis and Microscopic Stat 03/16/25 20:06 CT abdomen pelvis wo con Stat 03/16/25 21:35 Urine Drug Screen, Rapid Stat Sodium Chloride (Normal Saline 0.9%) 1,000 mls @ 1,000 mls/hr IV BOLUS PRN PRN Reason: Fluid replacement Last Admin: 03/16/25 20:18 Dose: 1,000 mls/hr Documented By: KIERRA Ondansetron HCl (Ondansetron 4 Mg/2 Ml Inj) 4 mg IV NOW PRN PRN Reason: Nausea And Vomiting Last Admin: 03/16/25 19:42 Dose: 4 mg Documented By: KIERRA Ondansetron HCl (Ondansetron 4 Mg Odt) 4 mg PO NOW PRN PRN Reason: Nausea And Vomiting Discontinued Medications Droperidol (Droperidol 2.5 Mg/Ml Vial) 2.5 mg IV NOW ONE Stop: 03/16/25 20:03 Last Admin: 03/16/25 20:18 Dose: 2.5 mg Documented By: KIERRA Ketorolac Tromethamine (Ketorolac 30 Mg/Ml Vial) 30 mg IV NOW ONE Stop: 03/16/25 19:47 Last Admin: 03/16/25 20:18 Dose: 30 mg Documented By: KIERRA Vital Signs Vital signs: Vital Signs - 8 hr 03/16/25 18:57 03/16/25 19:40 Temperature 98.4 F Pulse Rate 105 H 101 H Respiratory Rate 16 24 Blood Pressure 140/84 138/88 Pulse Oximetry 98 98 Oxygen Delivery Method Room Air MDM - Abdominal Pain Lab Data 03/16/25 19:30 03/16/25 19:30 Labs: Lab Results 03/16/25 03/16/25 03/16/25 Range/Units 19:30 19:55 21:35 WBC 7.0 (4.5-11.0) X10^3/uL RBC 4.77 (4.0-5.2) X10^6/uL Hgb 13.4 (12.0-16.0) g/dL Hct 39.0 (36-46) % MCV 81.7 (80-100) fL MCH 28.1 (26-34) PG MCHC 34.4 (30-36) % RDW 13.8 (11.6-14.8) % Plt Count 300 (150-400) X10^3/uL Neut % (Auto) 72.5 (50-75) % Lymph % (Auto) 17.7 L (25-40) % [place] % (Auto) 7.6 (3-14) % Eos % (Auto) 1.1 L (2-4) % Baso % (Auto) 1.1 (0-2) % Neut # (Auto) 5100 (8149-6806) /uL Lymph # (Auto) 1200 (5715-9165) /uL [place] # (Auto) 500 (0-900) /uL Eos # (Auto) 100 (0-450) /uL Baso # (Auto) 100 (0-100) /uL Sodium 136 L (137-145) mmol/L Potassium 3.6 (3.4-5.1) mmol/L Chloride 104 (98-107) mmol/L Carbon Dioxide 20 L (22-32) mmol/L BUN 10 (7-17) mg/dL Creatinine 0.63 (0.52-1.04) mg/dL Estimated GFR > 60 (>60) mL/min BUN/Creatinine Ratio 15.9 (6-22) Glucose 106 H (70-99) mg/dL Calcium 9.1 (8.4-10.2) mg/dL Total Bilirubin 0.7 (0.2-1.3) mg/dL AST 38 H (14-36) IU/L ALT 23 (<35) IU/L Alkaline Phosphatase 58 (38-126) U/L Total Protein 8.3 H (6.3-8.2) g/dL Albumin 4.9 (3.5-5.0) g/dL Globulin 3.4 (1.7-4.1) g/dL Albumin/Globulin Ratio 1.4 (1.0-2.8) Lipase 695 H (23-300) U/L Serum , Qual Negative (Negative) Urine Color Yellow Urine Appearance Clear Urine pH 6.5 Normal (4.5-8.0) Ur Specific [place] >=1.030 H (1.000-1.035) Urine Protein 1+ H (Negative) Urine Glucose (UA) Negative (Negative) g/dL Urine Ketones 3+ H (NEGATIVE) Urine Occult Blood Trace-intact (Negative) Urine Nitrate Negative (Negative) Urine Bilirubin 1+ H (NEGATIVE) Ur Bilirubin Confirm Negative (Negative) Urine Urobilinogen 0.2 (0.2) E.U./dL Ur Leukocyte Esterase Negative (NEGATIVE) Urine RBC 1-5/hpf (0-5/HPF) Urine WBC 0-1/hpf (0-5/HPF) Ur Squamous Epith Cells 1-5 /hpf (0-5/HPF) Urine Bacteria Occasional (0-1) (None) Urine Mucus 3+ H D (Negative) Ur Culture Indicated? Cult not indicated Vol Urine Centrifuged 10ml (spun) U Opiates 300ng/mL cut Negative (Negative) Ur Oxycodone Screen Negative (Negative) Urine Methadone Screen Negative (Negative) Ur Barbiturates Screen Negative (Negative) U Tricyclic Antidepress Negative (Negative) Ur Phencyclidine Scrn Negative (Negative) Ur Amphetamines Screen Negative (Negative) U Methamphetamines Scrn Negative (Negative) Ur MDMA Scrn (Ecstasy) Negative (Negative) U Benzodiazepines Scrn Negative (Negative) Urine Cocaine Screen Negative (Negative) U Marijuana (THC) Screen Positive H (Negative) Urine Specific [place] Normal (Normal) Ur Creatinine Normal (Normal) Point of care testing: Point of Care Testing Test Results Negative MDM Narrative Medical decision making narrative: The patient had CAT scan of the abdomen and pelvis read by the radiologist as negative for any acute pathology patient has CBC with normals chemistry within normal limits lipase was elevated at 695 urinalysis was negative and tox screen was positive for marijuana the emergency room patient was given Toradol and Zofran. At this point I have no clear etiologies for the patient's right-sided abdominal pain. However with the vomiting and diarrhea differential diagnosis includes colitis diverticulitis enterocolitis gastroenteritis. I will send the patient home prescription for Compazine and Bentyl she can follow up with her doctor next week. She will need a repeat lipase because although elevated is not the area of her pain and it would just a repeat evaluation. Discharge Plan Departure Patient Disposition: Home Clinical Impression: Right-sided abdominal pain of unknown cause, Elevated lipase Instructions: DI for Abdominal Pain-Adult Prescriptions: New prochlorperazine 25 mg suppository 25 mg SD BID PRN (Reason: nausea and vomiting) Qty: 12 0RF dicyclomine 10 mg capsule 10 mg PO QID PRN (Reason: abdominal pain) Qty: 20 0RF No Action metformin 500 mg tablet 250 mg PO BID PRN (Reason: diabetes mellitus) tretinoin 0.025 % cream topical methylphenidate HCl 20 mg tablet 20 mg PO DAILY prednisone 20 mg tablet 20 mg PO BID ondansetron 4 mg tablet,disintegrating 4 mg PO 3XD bupropion HCl 300 mg tablet extended release 24 hr 300 mg PO DAILY bupropion HCl 150 mg tablet extended release 24 hr 150 mg PO DAILY methylphenidate HCl 20 mg capsule,ER biphasic 50-50 20 mg PO QAM (DME) pen needle, diabetic [Novofine 32] 32 gauge x 1/4 needle See Rx Instructions .ROUTE DIRECTED Qty: 100 Rx Instructions: As directed Mounjaro 2.5 mg/0.5 mL pen injector SUBCUT Patient Comments: [NO ORIGINAL SIG] cetirizine 10 mg tablet 10 mg PO DAILY Qty: 14 0RF Referrals: Carlos Grimes MD [Primary Care Provider, Internal Medicine] - 3-5 days Stand Alone Forms: Patient Portal/API
[2025-03-16 19:49] LABS: Alanine Aminotransferase 23 IU/L (<35); Albumin 4.9 g/dL (3.5-5.0); Albumin Globulin Ratio 1.4 (1.0-2.8); Alkaline Phosphatase 58 U/L (38-126); Blood Urea Nitrogen 10 mg/dL (7-17); Calcium 9.1 mg/dL (8.4-10.2); Carbon Dioxide 20 mmol/L (22-32); Chloride 104 mmol/L (98-107); Estimated Glomerular Filt Rate > 60 mL/min (>60); Globulin 3.4 g/dL (1.7-4.1); Glucose 106 mg/dL (70-99); HEMOLYSIS < 15 (0-50); Lipase 695 U/L (23-300); Potassium 3.6 mmol/L (3.4-5.1); Sodium 136 mmol/L (137-145); Total Protein 8.3 g/dL (6.3-8.2)
--- NOTE | 2025-03-16 20:06 | DI.CT.S_ITS ---
PROCEDURE: CT ABDOMEN PELVIS [facility] INDICATIONS: upper abd pain TECHNIQUE: CT of the abdomen and pelvis was obtained without intravenous contrast. Coronal and sagittal reformats were performed. For radiation dose reduction, the following was used: automated exposure control, adjustment of mA and/or kV according to patient size. COMPARISON: Outside Facility, CT, CT ABDOMEN PELVIS [facility], 07/20/2023, 21:58. FINDINGS: Image quality: Diagnostic. Lower Chest: No significant findings. ABDOMEN: Liver: No contour-deforming mass. Focal fat adjacent to the falciform ligament. Gallbladder: Absent. Biliary ducts: No biliary dilation. Pancreas: No ductal dilation. Spleen: Size is within normal limits. Adrenal Glands: No adrenal nodules. Kidneys and Ureters: No hydronephrosis. No contour-deforming mass. Stomach and Bowel: Normal colonic caliber, without significant wall thickening. Normal appendix. Peritoneum: No abnormal intraperitoneal fluid. No free air. Ventral Wall: Small umbilical hernia containing fat. Mild soft tissue bands of the ventral wall, presumably postsurgical in nature. Abdominal Nodes: No retroperitoneal or mesenteric adenopathy by size criteria. Vessels: Aorta and inferior vena cava are normal in size. PELVIS: Pelvic Organs: Unremarkable. Bladder: Unremarkable. Pelvic Nodes: No enlarged lymph nodes. Miscellaneous: No inguinal hernias are seen. Bones: No aggressive osseous abnormality. IMPRESSION: No acute abnormality. Dictated by: Luther Albarado M.D. on 03/16/2025 at 21:23 Approved by: Luther Albarado M.D. on 03/16/2025 at 21:26
[2025-03-16 20:17] LABS: Appearance Urine UA CLEAR; Bilirubin Urine UA 1+ (NEGATIVE); Color Urine UA YELLOW; Glucose Urine UA NEGATIVE (Negative); Ketones Urine UA 3+ (NEGATIVE); Leukocyte Esterase Urine UA NEGATIVE (NEGATIVE); Nitrite Urine UA NEGATIVE (Negative); Occult Blood Urine UA TRACE-INTACT (Negative); Protein Urine UA 1+ (Negative); Specific Gravity Urine UA >=1.030 (1.000-1.035); Urobilinogen Urine UA 0.2 E.U./dL (0.2)
[2025-03-16] MEDS: KETOROLAC 30 MG/ML VIAL IV (20:18)
[2025-03-16] MEDS: SODIUM CHLORIDE 0.9% 1,000 ML 1000 ML IV (20:18)
[2025-03-16] MEDS: droPERidol 2.5 MG/ML VIAL IV (20:18)
[2025-03-16 20:20] LABS: pH Urine UA 6.5 (4.5-8.0)
[2025-03-16 20:26] LABS: Ictotest Urine Negative (Negative)
[2025-03-16 20:27] LABS: Culture Indicated Urine Cult Not Indicated
[2025-03-16 21:00] LABS: Pregnancy Test Serum,Qual Negative (Negative)
[2025-03-16 21:44] LABS: Ur Specific Gravity Normal (Normal)
[2025-03-16 21:45] LABS: UR Morphine/Opiate cutoff 300 Negative (Negative); Urine MDMA Negative (Negative); Urine Methamphetamines Negative (Negative); Urine Tetrahydrocannabinol Positive (Negative); Urine Tricyclic Antidepressant Negative (Negative)
[2025-03-16 22:13] VITALS: BP 124/78; PULSE 79; RESP 16; O2SAT 98
== END 2025-03-16 22:14 | disposition home or self-care (01) ==
PROVIDERS: Emergency Provider Emergency Medicine; PCP Internal Medicine
DX: R10.9 Unspecified abdominal pain (principal); R74.8 Abnormal levels of other serum enzymes; R11.2 Nausea with vomiting, unspecified; R19.7 Diarrhea, unspecified
CPT/HCPCS: 36415; 74176; 80053; 80305; 81001; 81025; 83690; 84703; 85025; 96361; 96374; 96375; 99284; J1790; J1885; J2405; J7030